=== PATIENT | female | born 1950 | race Caucasian/White ===

== ENCOUNTER 2016-10-15 20:40 | Inpatient (IN) | payer OTHER ==
[2016-10-15] MEDS ORDERED: DUONEB 0.5 MG/3 MG NEB ONE (21:28)
--- NOTE | 2016-10-15 21:29 | DR.GENAD ---
HPI - PCP Primary Care Physician: josselyn, - Complaint/Symptoms Chief Complaint Doctors Comments: Patient was undergoing dialysis today and the machine stopped working one hour short of the dialysis time. She experience dyspnes and came to the ED for evaluation. She has been on dialysis for one month. Chief Complaint:: PT C/O TIGHTNESS IN CHEST AND WEAK PT HAD DIAYLSIS YESTERDAY - Source History Provided: Patient - Mode of Arrival Mode of Arrival: Ambulatory - Timing Onset of Chief Complaint: 10/15/16 PMH - PMH Past Medical History: Yes Past Medical History: Diabetes, Dialysis, Hypertension, Hypothyroidism, Renal Disease Past Surgical History: Yes Surgical History: Appendectomy, Hysterectomy, Thyroidectomy, Tonsillectomy - Family History History of Family Medical Conditions: Yes Family Medical History Comment: RENAL DX - Social History Does any household member use tobacco: No Alcohol Use: None Do you use any recreational Drugs:: No Lives With: Family Lives Where: Home - infectious screening In the last 2 months have you had wt loss of >10#?: NO Have you had fever, night sweats or hemotysis?: No Have you traveled outside the country in the last 6 months?: No Isolation: Standard ROS - Review of Systems Constitutional: No Symptoms Reported Eyes: No Symptoms Reported ENTM: No Symptoms Reported Respiratoy: Short of Breath Cardiovascular: No Symptoms Reported Gastrointestinal/Abdominal: No Symptoms Reported Genitourinary: No Symptoms Reported Neurological: No Symptoms Reported Musculoskeletal: No Symptoms Reported Integumentary: No Symptoms Reported Hematologic/Lymphatic: Other (r/o PE) Endocrine: No Symptoms Reported PE - Vital Signs Vitals: Temperature 100.4 F Pulse Rate [Apical] 87 Pulse Rate 99 Respiratory Rate 20 Blood Pressure [Left Arm] 179/77 Blood Pressure 158/70 O2 Sat by Pulse Oximetry 94 - General Limitations: No Limitations General Appearance: Alert, In No Apparent Distress - Head Head Exam: Normal Inspection, Atraumatic - Eyes Eye exam: Normal Appearance, PERRL, EOMI - ENT ENT Exam: Normal Exam External Ear Exam: Normal External Inspection TM/Canal Exam: Bilateral Normal Nose Exam: Normal Nose Exam Mouth Exam: Normal Inspection Throat Exam: Normal Inspection - Neck Neck Exam: Normal Inspection - Chest Chest Inspection: Normal Inspection - Respiratory Respiratory Exam: Normal Lung Sounds Bilat Respiratory Exam: Bilateral Clear to Auscultation - Cardiovascular Cardiovascular Exam: Regular Rate, Normal Rhythm - Abdominal Exam Abdominal Exam: Normal Inspection Abdominal Tenderness: negative: RUQ, RLQ, LUQ, LLQ, Epigastrium, Suprapubic, Diffuse, Mild, Moderate, Severe, Other - Extremities Extremities Exam: Normal Inspection, Full ROM - Back Back Exam: Normal Inspection - Neurologic Neurological Exam: Alert, Oriented X3, CN II-XII Intact - Psychiatric Psychiatric Exam: Normal Affect, Normal Mood - Skin Skin Exam: Warm, Dry, Intact Course - Reevaluation 1st: Improved - Consultation Called: 23:20 (Patient discussed recommended admit for further evaluation) ROR - Labs Reviewed Laboratory Results Reviewed?: Yes (D Dimer 1350) Result Diagrams: 10/15/16 21:15 10/15/16 21:15 Laboratory: WBC 8.0 X10^3/uL (3.6-10.0) 10/15/16 21:15 RBC 2.86 X10^6/uL (3.5-5.4) L 10/15/16 21:15 Hgb 8.4 g/dL (12.0-16.0) L 10/15/16 21:15 Hct 25.0 % (36.0-47.0) L 10/15/16 21:15 MCV 87.6 fL (80.0-100.0) 10/15/16 21:15 MCH 29.3 pg (27.0-34.0) 10/15/16 21:15 MCHC 33.5 g/dL (33.0-35.0) 10/15/16 21:15 RDW 14.1 % (11.6-16.5) 10/15/16 21:15 Plt Count 190 X10^3/uL (150.0-450.0) 10/15/16 21:15 MPV 8.1 fL (7.4-11.0) 10/15/16 21:15 Neut % 79.4 % (42.0-75.0) H 10/15/16 21:15 Lymph % 9.5 % (21.0-51.0) L 10/15/16 21:15 Wilson % 8.2 % (0.0-13.0) 10/15/16 21:15 Eos % 1.8 % (0.9-2.9) 10/15/16 21:15 Baso % 1.1 % (0.2-1.0) H 10/15/16 21:15 Neut # 6.3 x10^3/uL (2.2-4.8) H 10/15/16 21:15 Lymph # 0.8 X10^3/uL (1.3-2.9) L 10/15/16 21:15 Wilson # 0.7 x10^3/uL (0.3-0.8) 10/15/16 21:15 Eos # 0.1 x10^3/uL (0.0-0.2) 10/15/16 21:15 Baso # 0.1 X10^3/uL (0.0-0.1) 10/15/16 21:15 Absolute Nucleated RBC 0.2 /100WBC 10/15/16 21:15 INR Target Range - 10/15/16 21:15 INR 1.05 (0.8-1.3) 10/15/16 21:15 PTT 26.5 SECONDS (22.9-36.5) 10/15/16 21:15 PTT Comment - 10/15/16 21:15 D-Dimer 1350 ng/mL (0-400) H* 10/15/16 21:15 Sodium 142 mmol/L (136-145) 10/15/16 21:15 Corrected Sodium 143 mmol/L (136-145) 10/15/16 21:15 Potassium 3.8 mmol/L (3.5-5.1) 10/15/16 21:15 Chloride 106 mmol/L (98-107) 10/15/16 21:15 Carbon Dioxide 25.8 mmol/L (21-32) 10/15/16 21:15 BUN 34 mg/dL (7-18) H 10/15/16 21:15 Creatinine 4.68 mg/dL (0.55-1.02) H 10/15/16 21:15 Est GFR (MDRD) Af Amer 12 (>60) L 10/15/16 21:15 Est GFR (MDRD) Non-Af 10 (>60) L 10/15/16 21:15 Glucose 133 mg/dL (65-99) H 10/15/16 21:15 Calcium 8.5 mg/dL (8.5-10.1) 10/15/16 21:15 Corrected Calcium 9.1 mg/dL (8.5-10.1) 10/15/16 21:15 Magnesium 1.7 mg/dL (1.7-2.9) 10/15/16 21:15 Total Bilirubin 0.40 mg/dL (0.2-1.0) 10/15/16 21:15 AST 25 Units/L (15-37) 10/15/16 21:15 ALT 24 Units/L (12-78) 10/15/16 21:15 Alkaline Phosphatase 95 Units/L (46-116) 10/15/16 21:15 Creatine Kinase 59 Units/L (26-192) 10/15/16 21:15 CK-MB (CK-2) < 1.0 ng/mL (0-4.0) 10/15/16 21:15 CK/CKMB % Calc 1.7 % (<4) 10/15/16 21:15 Troponin I 0.03 ng/mL (0-1.5) 10/15/16 21:15 Total Protein 7.1 g/dL (6.4-8.2) 10/15/16 21:15 Albumin 3.3 g/dL (3.4-5.0) L 10/15/16 21:15 Globulin 3.8 g/dL (2.5-4.5) 10/15/16 21:15 Albumin/Globulin Ratio 0.9 Ratio (1.1-2.1) L 10/15/16 21:15 - XRAY XRAY Interpreted by: Radiologist (Chest: cardiomegaly with pulmonary edema and trace bilateral pleural effusions. Right sided dialysis catheter in the place. No focal consolidations, pleural effusions or pneumothorax. Osseous structures demonstrate no acute abnormality. Impression: Cardiomegaly with edema and bilateral small pleural effusions.) - Diagnosis Discharge Problem: Cardiomegaly with PE, R/O Pulmonary emboli - Discharge Plan Condition: Stable - Follow ups/Referrals Follow ups/Referrals: Nicho Grewal [Primary Care Provider] - 3 days - Instructions
[2016-10-15] MEDS ORDERED: DUONEB 0.5 MG/3 MG ONE (21:31)
[2016-10-15 21:37] LABS: BASOPHILS # (AUTO) 0.1 X10^3/uL (0.0-0.1); BASOPHILS % (AUTO) 1.1 % (0.2-1.0); EOSINOPHILS # (AUTO) 0.1 x10^3/uL (0.0-0.2); EOSINOPHILS % (AUTO) 1.8 % (0.9-2.9); HEMOGLOBIN 8.4 g/dL (12.0-16.0); LYMPHOCYTES # (AUTO) 0.8 X10^3/uL (1.3-2.9); LYMPHOCYTES % (AUTO) 9.5 % (21.0-51.0); MEAN CORPUSCULAR HEMOGLOBIN 29.3 pg (27.0-34.0); MEAN CORPUSCULAR HGB CONC 33.5 g/dL (33.0-35.0); MEAN CORPUSCULAR VOLUME 87.6 fL (80.0-100.0); MEAN PLATELET VOLUME 8.1 fL (7.4-11.0); MONOCYTES # (AUTO) 0.7 x10^3/uL (0.3-0.8); MONOCYTES % (AUTO) 8.2 % (0.0-13.0); NEUTROPHILS # (AUTO) 6.3 x10^3/uL (2.2-4.8); NEUTROPHILS % (AUTO) 79.4 % (42.0-75.0); PLATELET COUNT 190 X10^3/uL (150.0-450.0); RED BLOOD COUNT 2.86 X10^6/uL (3.5-5.4); RED CELL DISTRIBUTION WIDTH 14.1 % (11.6-16.5)
[2016-10-15 21:52] LABS: BLOOD UREA NITROGEN 34 mg/dL (7-18); CALCIUM 8.5 mg/dL (8.5-10.1); CARBON DIOXIDE 25.8 mmol/L (21-32); CHLORIDE 106 mmol/L (98-107); COR NA(FOR HYPERGLY) 143 mmol/L (136-145); CREATININE 4.68 mg/dL (0.55-1.02); GLUCOSE 133 mg/dL (65-99); SODIUM 142 mmol/L (136-145); TROPONIN I 0.03 ng/mL (0-1.5); eGFR BLACK RACES 12 (>60); eGFR NON BLACK RACES 10 (>60)
[2016-10-15 21:56] LABS: ALANINE AMINOTRANSFERASE 24 Units/L (12-78); ALBUMIN 3.3 g/dL (3.4-5.0); ALKALINE PHOSPHATASE 95 Units/L (46-116); ASPARTATE AMINO TRANSFERASE 25 Units/L (15-37); CKMB % 1.7 % (<4); COR CA(FOR HYPOALB) 9.1 mg/dL (8.5-10.1); CREATINE KINASE 59 Units/L (26-192); CREATINE KINASE MB < 1.0 ng/mL (0-4.0); MAGNESIUM 1.7 mg/dL (1.7-2.9); TOTAL PROTEIN 7.1 g/dL (6.4-8.2)
--- NOTE | 2016-10-15 22:17 | RAD ---
HISTORY: Chest pain Study: Single view of the chest. Comparison: None. Findings: Cardiomegaly with pulmonary edema and trace bilateral pleural effusions. Right-sided dialysis cathet er in place. No focal consolidations, pleural effusions or pneumothorax. Osseous structures demonstr ate no acute abnormality. IMPRESSION: 1. Cardiomegaly with edema and bilateral small pleural effusions. Reported By:
[2016-10-15] MEDS ORDERED: LASIX IVP ONE ×2 (23:01→23:11)
[2016-10-15] MEDS ORDERED: MORPHINE SULFATE INJ 4 MG IVP ONE (23:12)
[2016-10-15] MEDS ORDERED: MORPHINE SULFATE INJ 4 MG ONE (23:16)
[2016-10-15] MEDS ORDERED: NS 1000 ML 1,000 ML IV SCH (23:45)
[2016-10-15] MEDS ORDERED: MORPHINE SULFATE INJ 4 MG IVP PRN (23:57)
[2016-10-15] MEDS ORDERED: ZOFRAN INJ 4 MG VIAL IVP PRN (23:58)
[2016-10-15] MEDS ORDERED: COLCRYS TAB 0.6 MG PO PRN (23:59)
[2016-10-16] MEDS ORDERED: HumuLIN R SC PRN (00:36)
[2016-10-16 00:59] VITALS: BMI 27.8
[2016-10-16 05:41] LABS: ALANINE AMINOTRANSFERASE 22 Units/L (12-78); ALKALINE PHOSPHATASE 81 Units/L (46-116); ASPARTATE AMINO TRANSFERASE 21 Units/L (15-37); BASOPHILS # (AUTO) 0.1 X10^3/uL (0.0-0.1); BLOOD UREA NITROGEN 36 mg/dL (7-18); CALCIUM 8.1 mg/dL (8.5-10.1); CARBON DIOXIDE 26.8 mmol/L (21-32); CHLORIDE 106 mmol/L (98-107); CHOL/HDL RATIO 3.6 (0.0-5.0); CHOLESTEROL 143 mg/dL (0-200); COR CA(FOR HYPOALB) 8.9 mg/dL (8.5-10.1); CREATININE 4.98 mg/dL (0.55-1.02); EOSINOPHILS # (AUTO) 0.1 x10^3/uL (0.0-0.2); EOSINOPHILS % (AUTO) 1.9 % (0.9-2.9); GLUCOSE 99 mg/dL (65-99); HDL CHOLESTEROL 40 mg/dL (40-60); HEMATOCRIT 22.4 % (36.0-47.0); HEMOGLOBIN 7.4 g/dL (12.0-16.0); LYMPHOCYTES # (AUTO) 1.1 X10^3/uL (1.3-2.9); LYMPHOCYTES % (AUTO) 14.3 % (21.0-51.0); MEAN CORPUSCULAR HEMOGLOBIN 29.6 pg (27.0-34.0); MEAN CORPUSCULAR HGB CONC 33.3 g/dL (33.0-35.0); MEAN CORPUSCULAR VOLUME 88.8 fL (80.0-100.0); MEAN PLATELET VOLUME 8.3 fL (7.4-11.0); MONOCYTES # (AUTO) 0.7 x10^3/uL (0.3-0.8); MONOCYTES % (AUTO) 9.6 % (0.0-13.0); NEUTROPHILS # (AUTO) 5.4 x10^3/uL (2.2-4.8); NEUTROPHILS % (AUTO) 73.2 % (42.0-75.0); PLATELET COUNT 182 X10^3/uL (150.0-450.0); RED BLOOD COUNT 2.52 X10^6/uL (3.5-5.4); RED CELL DISTRIBUTION WIDTH 14.2 % (11.6-16.5); SODIUM 143 mmol/L (136-145); TOTAL PROTEIN 6.5 g/dL (6.4-8.2); TRIGLYCERIDES 120 mg/dL (0-150); WHITE BLOOD COUNT 7.3 X10^3/uL (3.6-10.0); eGFR BLACK RACES 11 (>60); eGFR NON BLACK RACES 9 (>60)
[2016-10-16] MEDS: SYNTHROID 150 mcg TAB PO SCH (06:02)
[2016-10-16 06:48] LABS: PLATELET MORPHOLOGY COMMENT NORMAL (NORMAL)
[2016-10-16 06:49] LABS: MICROCYTOSIS SLIGHT
--- NOTE | 2016-10-16 06:53 | RAD ---
History: Weakness and shortness of breath Study: Portable chest Comparison: Yesterday Findings: There is little change showing a prominent heart size and asymmetric airspace disease prim arily in the right lung. There is vascular congestion. The costophrenic angles are indistinct. There is a dialysis catheter on the right unchanged. Impression: Unchanged small pleural effusions and vascular congestion and right lung pulmonary edema more than left versus pneumonia Reported By:
[2016-10-16] MEDS ORDERED: [UNRECOGNIZED DRUG - OTHER] PO SCH (09:00)
[2016-10-16] MEDS ORDERED: LASIX IVP SCH (09:00)
[2016-10-16] MEDS ORDERED: LASIX IVP ONE (09:00)
--- NOTE | 2016-10-16 09:11 | PCM.PROG ---
Progress Note - Progress Note for Day of Date: 10/16/16 - Subjective Subjective: PATIENT LYING IN BED AWAKE ON MORNING ROUNDS. VERBALIZES COMPLAINTS OF SHORTNESS OF BREATH. PATIENT IS NOTED WITH WHEEZING ON AUSCULTATION. WHILE IN ER, OXYGEN SATURATIONS DROPPED INTO THE 80S. SHE WAS PLACED ON SUPPLEMENTAL OXYGEN AND SATS INCREASED TO 94. PATIENT STATES THAT SHE HAS JUST RECENTLY BEGAN DIALYSIS TREATMENT A MONTH AGO AND THAT SHE IS AWAITING A KIDNEY TRANSPLANT. SHE WAS ALSO SCHEDULED FOR PLACEMENT OF A SHUNT FOR DIALYSIS, BUT CANCELLED PROCEDURE UNTIL SHE IS RELEASED FROM OUR CARE. LABS AND XRAYS WERE OBTAINED AND REPORT THE FOLLOWING: CBC WNL EXCEPT HBG/HCT 7.4/22.4. CMP WNL EXCEPT BUN/CREAT 36/4.98, GFR 9, ALBUMIN 3.0. D-DIMER 1350. CHEST XRAY REPORTS UNCHANGED SMALL PLEURAL EFFUSIONS AND VASCULAR CONGESTION AND RIGHT AKASH PULMONARY EDEMA MORE THAN LEFT VERSUS PNEUMONIA. A VQ SCAN IS SCHEDULED TODAY. WE WILL GIVE LASIX X 1 DOSE AND DISCONTINUE FLUIDS. WE WILL MONITOR LABS AND CHEST XRAY IN AM. - Past Medical Family Social History Past Med/Fam/Surg Hx: No changes since H&P Allergies: Allergies Codeine Allergy (Verified 10/15/16 20:42) - Review of Systems ROS: No change since H&P - Vital Signs and I&O's Vital Signs: Temperature 98.7 F Pulse Rate [Apical] 84 Respiratory Rate 20 Blood Pressure [Left Arm] 166/74 O2 Sat by Pulse Oximetry 89 Intake and Output: Intake & Output 10/13/16 10/14/16 10/15/16 10/16/16 11:59 11:59 11:59 11:59 Intake Total 240 Output Total 400 Balance -160 - Physical Exam Oriented: Normal Eyes: Normal. negative: Blurred Vision Ear: Normal. negative: Swelling, Ecchymosis, Hemotypanum, Abrasion Nose: Normal Throat: Normal. negative: Tonsillar Hypertrophy, Red, Exudate Respiratory: Normal, Diminished, Wheezes Cardiovascular: Normal : Normal. negative: Dysuria, Hematuria, Discharge, Bleeding Auscultation: Bowel Sounds: Normal Palpation: Normal Tenderness: Normal. negative: Rebound, Guarding, Rigidity Skin: Normal. negative: Wound, Bruising, Ecchymosis Musculoskeletal: Normal Psychiatric: Normal Mood Description: Calm Affect: Normal Speech Pattern: Clear, Appropriate - Laboratory and Diagnostics Result Diagrams: 10/16/16 03:20 10/16/16 03:20 Labs: Laboratory WBC 7.3 X10^3/uL (3.6-10.0) 10/16/16 03:20 RBC 2.52 X10^6/uL (3.5-5.4) L 10/16/16 03:20 Hgb 7.4 g/dL (12.0-16.0) L 10/16/16 03:20 Hct 22.4 % (36.0-47.0) L 10/16/16 03:20 MCV 88.8 fL (80.0-100.0) 10/16/16 03:20 MCH 29.6 pg (27.0-34.0) 10/16/16 03:20 MCHC 33.3 g/dL (33.0-35.0) 10/16/16 03:20 RDW 14.2 % (11.6-16.5) 10/16/16 03:20 Plt Count 182 X10^3/uL (150.0-450.0) 10/16/16 03:20 Plt Count Comment Adequate (ADEQUATE) 10/16/16 03:20 MPV 8.3 fL (7.4-11.0) 10/16/16 03:20 Neut % 73.2 % (42.0-75.0) 10/16/16 03:20 Lymph % 14.3 % (21.0-51.0) L 10/16/16 03:20 Door % 9.6 % (0.0-13.0) 10/16/16 03:20 Eos % 1.9 % (0.9-2.9) 10/16/16 03:20 Baso % 1.0 % (0.2-1.0) 10/16/16 03:20 Neut # 5.4 x10^3/uL (2.2-4.8) H 10/16/16 03:20 Lymph # 1.1 X10^3/uL (1.3-2.9) L 10/16/16 03:20 Door # 0.7 x10^3/uL (0.3-0.8) 10/16/16 03:20 Eos # 0.1 x10^3/uL (0.0-0.2) 10/16/16 03:20 Baso # 0.1 X10^3/uL (0.0-0.1) 10/16/16 03:20 Absolute Nucleated RBC 0.3 /100WBC 10/16/16 03:20 Plt Morphology Comment Normal (NORMAL) 10/16/16 03:20 RBC Morphology Abnormal (NORMAL) A 10/16/16 03:20 Microcytosis Slight A 10/16/16 03:20 INR Target Range - 10/15/16 21:15 INR 1.05 (0.8-1.3) 10/15/16 21:15 PTT 26.5 SECONDS (22.9-36.5) 10/15/16 21:15 PTT Comment - 10/15/16 21:15 D-Dimer 1350 ng/mL (0-400) H* 10/15/16 21:15 Sodium 143 mmol/L (136-145) 10/16/16 03:20 Corrected Sodium TNP 10/16/16 03:20 Potassium 3.7 mmol/L (3.5-5.1) 10/16/16 03:20 Chloride 106 mmol/L (98-107) 10/16/16 03:20 Carbon Dioxide 26.8 mmol/L (21-32) 10/16/16 03:20 BUN 36 mg/dL (7-18) H 10/16/16 03:20 Creatinine 4.98 mg/dL (0.55-1.02) H 10/16/16 03:20 Est GFR (MDRD) Af Amer 11 (>60) L 10/16/16 03:20 Est GFR (MDRD) Non-Af 9 (>60) L 10/16/16 03:20 Glucose 99 mg/dL (65-99) 10/16/16 03:20 Calcium 8.1 mg/dL (8.5-10.1) L 10/16/16 03:20 Corrected Calcium 8.9 mg/dL (8.5-10.1) 10/16/16 03:20 Magnesium 1.7 mg/dL (1.7-2.9) 10/15/16 21:15 Total Bilirubin 0.40 mg/dL (0.2-1.0) 10/16/16 03:20 AST 21 Units/L (15-37) 10/16/16 03:20 ALT 22 Units/L (12-78) 10/16/16 03:20 Alkaline Phosphatase 81 Units/L (46-116) 10/16/16 03:20 Creatine Kinase 59 Units/L (26-192) 10/15/16 21:15 CK-MB (CK-2) < 1.0 ng/mL (0-4.0) 10/15/16 21:15 CK/CKMB % Calc 1.7 % (<4) 10/15/16 21:15 Troponin I 0.03 ng/mL (0-1.5) 10/15/16 21:15 Total Protein 6.5 g/dL (6.4-8.2) 10/16/16 03:20 Albumin 3.0 g/dL (3.4-5.0) L 10/16/16 03:20 Globulin 3.5 g/dL (2.5-4.5) 10/16/16 03:20 Albumin/Globulin Ratio 0.9 Ratio (1.1-2.1) L 10/16/16 03:20 Triglycerides 120 mg/dL (0-150) 10/16/16 03:20 Cholesterol 143 mg/dL (0-200) 10/16/16 03:20 LDL Cholesterol, Calc 79 mg/dL (0-100) 10/16/16 03:20 HDL Cholesterol 40 mg/dL (40-60) 10/16/16 03:20 Cholesterol/HDL Ratio 3.6 (0.0-5.0) 10/16/16 03:20 - Plan (1) Pulmonary embolism Status: Suspected Qualifiers: Pulmonary embolism type: P Chronicity: C Acute cor pulmonale presence: A Plan: CHECK VQ SCAN, GIVE LASIX X 1 DOSE, SUPPLEMENTAL OXYGEN, MONITOR LABS AND CHEST XRAY IN AM. (2) Shortness of breath Status: Acute (3) Acute on chronic respiratory failure Status: Acute Qualifiers: Respiratory failure complication: hypoxia Qualified Code(s): J96.21 - Acute and chronic respiratory failure with hypoxia Plan: SAME ABOVE (4) Renal failure Status: Chronic Qualifiers: Renal failure chronicity: chronic Acute renal failure type: A Chronic kidney disease stage: on chronic dialysis Qualified Code(s): N18.6 - End stage renal disease; Z99.2 - Dependence on renal dialysis Plan: CONTINUE TO MONITOR (5) Sarcoidosis of lung Status: Chronic (6) Hyperlipidemia Status: Acute Qualifiers: Hyperlipidemia type: H Plan: CONTINUE TO MONITOR (7) Depression Status: Chronic Qualifiers: Depression Type: major depressive disorder Major depression recurrence: M Active/Remission status: currently active Major depression episode severity : moderate Psychotic features: P Trimester: T Plan: CONTINUE TO MONITOR (8) Hypertension Status: Chronic Qualifiers: Hypertension type: essential hypertension Qualified Code(s): I10 - Essential (primary) hypertension Plan: CONTINUE TO MONITOR (9) Hypothyroidism Status: Chronic Qualifiers: Hypothyroidism type: acquired Qualified Code(s): E03.9 - Hypothyroidism, unspecified Plan: CONTINUE TO MONITOR (10) Gout Status: Chronic Qualifiers: Gout site: multiple sites Gout etiology: due to renal impairment Encounter type: E Laterality: L Chronicity: chronic Presence of tophus: without tophus Qualified Code(s): M1A.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
[2016-10-16] MEDS: ZOLOFT PO SCH (09:48)
[2016-10-16] MEDS: COREG TAB 25 MG PO SCH (09:48)
[2016-10-16] MEDS: ZESTRIL TAB 5 MG PO SCH (09:48)
[2016-10-16] MEDS: NORVASC TAB 10 MG PO SCH (09:48)
[2016-10-16] MEDS: CRESTOR TAB 10 MG PO SCH (09:48)
[2016-10-16] MEDS: ZYLOPRIM PO SCH (09:48)
[2016-10-16] MEDS: DUONEB 0.5 MG/3 MG NEB SCH ×4 (09:54→21:45)
[2016-10-16] MEDS ORDERED: DUONEB 0.5 MG/3 MG NEB SCH (13:00)
--- NOTE | 2016-10-16 14:06 | NM ---
HISTORY: Elevated D-dimer, chest pain Study: Ventilation-perfusion lung scan Comparison: None Technique: Ventilation scan was carried out using inhalation of 30.15 millicuries technetium 99 per technetate aerosol. The perfusion scan was carried out using intravenous injection of 6.46 millicuri es technetium 99 MAA. Findings: Ventilation scan demonstrated symmetric ventilation without significant ventilation defects. Perfusi on scan demonstrated symmetric profusion without significant perfusion defects. The probability of a cute pulmonary thromboembolic disease is low. IMPRESSION: Low probability acute pulmonary thromboembolic disease Reported By:
[2016-10-16] MEDS ORDERED: SNACK - Diabetic Appropriate PO SCH (20:00)
[2016-10-17] MEDS: SYNTHROID 150 mcg TAB PO SCH (06:01)
--- NOTE | 2016-10-17 06:17 | RAD ---
HISTORY: Shortness of breath Study: Chest one view Comparison: October 16, 2016 Findings: There is a dialysis catheter present with its tip in the superior vena cava. The heart is enlarged. Mild pulmonary venous congestion is present. Increasing right-sided perihilar alveolar infiltrates a re present most consistent with diffuse right lung pneumonia although asymmetric edema could have th is appearance. The left lung is clear. No pleural effusions are identified. IMPRESSION: Worsening right perihilar airspace disease most likely pneumonia although asymmetric edema could spi rits Moderate cardiomegaly Reported By:
[2016-10-17 06:22] LABS: BASOPHILS # (AUTO) 0.1 X10^3/uL (0.0-0.1); BASOPHILS % (AUTO) 0.9 % (0.2-1.0); EOSINOPHILS # (AUTO) 0.1 x10^3/uL (0.0-0.2); EOSINOPHILS % (AUTO) 1.5 % (0.9-2.9); HEMATOCRIT 22.5 % (36.0-47.0); HEMOGLOBIN 7.5 g/dL (12.0-16.0); LYMPHOCYTES # (AUTO) 1.1 X10^3/uL (1.3-2.9); LYMPHOCYTES % (AUTO) 14.3 % (21.0-51.0); MEAN CORPUSCULAR HEMOGLOBIN 29.7 pg (27.0-34.0); MEAN CORPUSCULAR HGB CONC 33.5 g/dL (33.0-35.0); MEAN CORPUSCULAR VOLUME 88.8 fL (80.0-100.0); MEAN PLATELET VOLUME 8.5 fL (7.4-11.0); MONOCYTES % (AUTO) 12.8 % (0.0-13.0); NEUTROPHILS # (AUTO) 5.3 x10^3/uL (2.2-4.8); NEUTROPHILS % (AUTO) 70.5 % (42.0-75.0); PLATELET COUNT 195 X10^3/uL (150.0-450.0); RED BLOOD COUNT 2.53 X10^6/uL (3.5-5.4); RED CELL DISTRIBUTION WIDTH 14.3 % (11.6-16.5); WHITE BLOOD COUNT 7.5 X10^3/uL (3.6-10.0)
[2016-10-17 06:36] LABS: ALANINE AMINOTRANSFERASE 16 Units/L (12-78); ALBUMIN 2.9 g/dL (3.4-5.0); ALKALINE PHOSPHATASE 83 Units/L (46-116); ASPARTATE AMINO TRANSFERASE 19 Units/L (15-37); BLOOD UREA NITROGEN 47 mg/dL (7-18); CALCIUM 8.6 mg/dL (8.5-10.1); CARBON DIOXIDE 24.2 mmol/L (21-32); CHLORIDE 105 mmol/L (98-107); COR CA(FOR HYPOALB) 9.5 mg/dL (8.5-10.1); CREATININE 5.31 mg/dL (0.55-1.02); GLUCOSE 105 mg/dL (65-99); SODIUM 142 mmol/L (136-145); TOTAL PROTEIN 6.6 g/dL (6.4-8.2); eGFR BLACK RACES 10 (>60); eGFR NON BLACK RACES 9 (>60)
[2016-10-17 07:21] LABS: HYPOCHROMASIA SLIGHT; PLATELET MORPHOLOGY COMMENT NORMAL (NORMAL)
[2016-10-17 07:22] LABS: ANISOCYTOSIS SLIGHT
[2016-10-17] MEDS: ZOLOFT PO SCH ×2 (07:42→10:35)
[2016-10-17] MEDS: ZYLOPRIM PO SCH ×2 (07:42→10:35)
[2016-10-17] MEDS: CRESTOR TAB 10 MG PO SCH ×2 (07:42→10:35)
[2016-10-17] MEDS: COREG TAB 25 MG PO SCH ×2 (07:42→10:34)
[2016-10-17] MEDS: ZESTRIL TAB 5 MG PO SCH ×2 (07:42→10:35)
[2016-10-17] MEDS: NORVASC TAB 10 MG PO SCH ×2 (07:43→10:35)
[2016-10-17] MEDS: DUONEB 0.5 MG/3 MG NEB SCH (09:15)
[2016-10-17 10:33] VITALS: BP 148/64
== END 2016-10-17 09:20 | disposition home or self-care (01) | DRG 204 ==
LOC: ER 20:40 → MED/SURG 23:48
PROVIDERS: ADMIT Internal Medicine; ATTEND Internal Medicine
DX: R06.02 Shortness of breath (principal); I26.99 Other pulmonary embolism without acute cor pulmonale; D86.0 Sarcoidosis of lung; E11.40 Type 2 diabetes mellitus with diabetic neuropathy, unspecified; R07.89 Other chest pain; E11.65 Type 2 diabetes mellitus with hyperglycemia; I10 Essential (primary) hypertension; E03.8 Other specified hypothyroidism; I51.7 Cardiomegaly; J90 Pleural effusion, not elsewhere classified; J96.21 Acute and chronic respiratory failure with hypoxia; N18.6 End stage renal disease; Z99.2 Dependence on renal dialysis; E78.2 Mixed hyperlipidemia; F32.89 Other specified depressive episodes; M1A.39X0 Chronic gout due to renal impairment, multiple sites, without tophus (tophi); Z79.01 Long term (current) use of anticoagulants
CPT/HCPCS: 36415; 71010; 78582; 80053; 80061; 82550; 82553; 83735; 84484; 85025; 85378; 85610; 85730; 93005; 94640; 94760; 96374; 96375; 99284; A4216; A4222; J1940; J2270; J7620

== ENCOUNTER 2017-05-08 09:51 | Observation (INO) | payer OTHER ==
[2017-05-08 12:27] VITALS: BMI 28.4
[2017-05-08 12:35] LABS: ALANINE AMINOTRANSFERASE 71 Units/L (12-78); ALBUMIN 3.5 g/dL (3.4-5.0); ALKALINE PHOSPHATASE 107 Units/L (46-116); ASPARTATE AMINO TRANSFERASE 26 Units/L (15-37); BASOPHILS # (AUTO) 0.1 X10^3/uL (0.0-0.1); BASOPHILS % (AUTO) 0.5 % (0.2-1.0); BLOOD UREA NITROGEN 25 mg/dL (7-18); CALCIUM 7.4 mg/dL (8.5-10.1); CARBON DIOXIDE 28.1 mmol/L (21-32); CHLORIDE 100 mmol/L (98-107); COR NA(FOR HYPERGLY) 140 mmol/L (136-145); CREATININE 3.41 mg/dL (0.55-1.02); EOSINOPHILS # (AUTO) 0.1 x10^3/uL (0.0-0.2); EOSINOPHILS % (AUTO) 1.1 % (0.9-2.9); HEMATOCRIT 33.5 % (36.0-47.0); HEMOGLOBIN 10.9 g/dL (12.0-16.0); LYMPHOCYTES # (AUTO) 1.1 X10^3/uL (1.3-2.9); LYMPHOCYTES % (AUTO) 8.7 % (21.0-51.0); MEAN CORPUSCULAR HGB CONC 32.4 g/dL (33.0-35.0); MEAN CORPUSCULAR VOLUME 98.8 fL (80.0-100.0); MEAN PLATELET VOLUME 9.9 fL (7.4-11.0); MONOCYTES # (AUTO) 0.7 x10^3/uL (0.3-0.8); MONOCYTES % (AUTO) 5.4 % (0.0-13.0); NEUTROPHILS # (AUTO) 11.1 x10^3/uL (2.2-4.8); NEUTROPHILS % (AUTO) 84.3 % (42.0-75.0); PLATELET COUNT 175 X10^3/uL (150.0-450.0); RED BLOOD COUNT 3.39 X10^6/uL (3.5-5.4); RED CELL DISTRIBUTION WIDTH 16.5 % (11.6-16.5); SODIUM 139 mmol/L (136-145); TOTAL PROTEIN 7.4 g/dL (6.4-8.2); WHITE BLOOD COUNT 13.1 X10^3/uL (3.6-10.0); eGFR BLACK RACES 17 (>60); eGFR NON BLACK RACES 14 (>60)
[2017-05-08 12:49] LABS: PLATELET MORPHOLOGY COMMENT NORMAL (NORMAL)
[2017-05-08] MEDS: LASIX IVP SCH ×2 (14:13→20:35)
[2017-05-08] MEDS: ECOTRIN TAB 325 MG PO SCH (14:13)
--- NOTE | 2017-05-08 15:14 | RAD ---
Examination: Chest, portable AP History: CHF, SOB, hypertension and sarcoid Comparison reference 10/17/2016 Findings: The heart is enlarged. The central pulmonary vessels are mildly distended. There is no evid ence for consolidation, adenopathy or pleural fluid. Impression: Cardiac enlargement with mild vascular congestion. Mention is made of a surgical vascular stent in the soft tissues of the left upper arm. Reported By:
[2017-05-08] MEDS ORDERED: COLCRYS TAB 0.6 MG PO PRN (17:05)
--- NOTE | 2017-05-09 06:17 | RAD ---
examination: Portable AP chest History: SOB Comparison reference 05/08/2017 Findings: Continued cardiomegaly and mild central vascular congestion. No evidence for developing pne umonia, pleural fluid or pulmonary edema. Impression: No change. Reported By:
[2017-05-09 06:23] LABS: BASOPHILS # (AUTO) 0.1 X10^3/uL (0.0-0.1); BASOPHILS % (AUTO) 0.7 % (0.2-1.0); EOSINOPHILS # (AUTO) 0.4 x10^3/uL (0.0-0.2); EOSINOPHILS % (AUTO) 2.9 % (0.9-2.9); HEMATOCRIT 33.1 % (36.0-47.0); HEMOGLOBIN 10.6 g/dL (12.0-16.0); LYMPHOCYTES # (AUTO) 1.9 X10^3/uL (1.3-2.9); LYMPHOCYTES % (AUTO) 13.9 % (21.0-51.0); MEAN CORPUSCULAR HEMOGLOBIN 32.1 pg (27.0-34.0); MEAN CORPUSCULAR HGB CONC 32.1 g/dL (33.0-35.0); MEAN CORPUSCULAR VOLUME 99.9 fL (80.0-100.0); MONOCYTES % (AUTO) 7.1 % (0.0-13.0); NEUTROPHILS # (AUTO) 10.3 x10^3/uL (2.2-4.8); NEUTROPHILS % (AUTO) 75.4 % (42.0-75.0); PLATELET COUNT 213 X10^3/uL (150.0-450.0); RED BLOOD COUNT 3.32 X10^6/uL (3.5-5.4); RED CELL DISTRIBUTION WIDTH 17.1 % (11.6-16.5); WHITE BLOOD COUNT 13.7 X10^3/uL (3.6-10.0)
[2017-05-09 06:41] LABS: ALANINE AMINOTRANSFERASE 59 Units/L (12-78); ALBUMIN 3.4 g/dL (3.4-5.0); ALKALINE PHOSPHATASE 98 Units/L (46-116); ASPARTATE AMINO TRANSFERASE 18 Units/L (15-37); BLOOD UREA NITROGEN 39 mg/dL (7-18); CALCIUM 6.7 mg/dL (8.5-10.1); CARBON DIOXIDE 25.7 mmol/L (21-32); CHLORIDE 101 mmol/L (98-107); COR NA(FOR HYPERGLY) 143 mmol/L (136-145); CREATININE 5.21 mg/dL (0.55-1.02); SODIUM 142 mmol/L (136-145); TOTAL PROTEIN 7.2 g/dL (6.4-8.2); eGFR BLACK RACES 11 (>60); eGFR NON BLACK RACES 9 (>60)
[2017-05-09 06:57] LABS: BAND NEUTROPHILS % 5 % (0-10)
[2017-05-09 06:58] LABS: PLATELET MORPHOLOGY COMMENT NORMAL (NORMAL)
[2017-05-09] MEDS: ECOTRIN TAB 325 MG PO SCH (08:34)
[2017-05-09] MEDS ORDERED: ZOLOFT PO SCH (09:00)
[2017-05-09] MEDS ORDERED: ZYLOPRIM PO SCH (09:00)
[2017-05-09] MEDS ORDERED: ZESTRIL TAB 5 MG PO SCH (09:00)
[2017-05-09] MEDS ORDERED: COREG TAB 25 MG PO SCH (09:00)
[2017-05-09] MEDS ORDERED: NORVASC TAB 10 MG PO SCH (09:00)
[2017-05-09] MEDS ORDERED: CRESTOR TAB 10 MG PO SCH (09:00)
[2017-05-09] MEDS ORDERED: SYNTHROID 125 mcg TAB PO SCH (09:00)
[2017-05-09] MEDS: LASIX IVP SCH ×2 (10:03→17:16)
[2017-05-09] MEDS ORDERED: ELIQUIS PO SCH (10:30)
--- NOTE | 2017-05-09 12:09 | DR.UPDATE ---
H&P Update History and Physical Update: WAS SEEN IN THE OFFICE ON 05/07/17. A H&P WAS COMPLETED PRIOR TO ADMISSION. PATIENT HAS BEEN SEEN AND EXAMINED WITH NO CHANGES NOTED TO H&P. Changes noted: NO Yes with the following:
[2017-05-09 16:15] VITALS: BP 138/91
[2017-05-09] MEDS ORDERED: LASIX IVP ONE (16:50)
== END 2017-05-09 18:05 | disposition home or self-care (01) ==
LOC: OBS 09:51 → UNDOADMOB 09:51 → OBS 11:41
PROVIDERS: ADMIT Internal Medicine; ATTEND Internal Medicine
DX: I50.9 Heart failure, unspecified (principal); N18.6 End stage renal disease; E11.65 Type 2 diabetes mellitus with hyperglycemia; B96.5 Pseudomonas (aeruginosa) (mallei) (pseudomallei) as the cause of diseases classified elsewhere; D72.828 Other elevated white blood cell count; D64.89 Other specified anemias; R94.4 Abnormal results of kidney function studies
CPT/HCPCS: 36415; 71010; 80053; 85025; 87070; 87075; 87077; 87186; 87205; 94760; A4222; G0378; J1940

== ENCOUNTER 2020-08-06 11:33 | Inpatient (IN) ==
[2020-08-06 11:36] VITALS: BMI 26.6
--- NOTE | 2020-08-06 12:19 | RAD ---
HISTORYSOBSTUDYCHEST, 1 VIEWCOMPARISONPortable chest May 06, 2019.FINDINGSThe trachea is midline. The cardiac silhouette is mildly enlarged but stable.. The lungs are clear without focal infiltrate or effusion. The bony thorax is unremarkable.IMPRESSIONNo acute cardiopulmonary disease and no significant change from prior chest film May 06, 2019..Electronically signed by: ARIS VASQUEZ (Aug 06, 2020 12:15:42)
[2020-08-06 12:53] LABS: BASOPHILS % (AUTO) 0 % (0.2-1.0); EOSINOPHILS % (AUTO) 0.5 % (0.9-2.9); HEMATOCRIT 24.9 % (36.0-47.0); HEMOGLOBIN 8.2 g/dL (12.0-16.0); LYMPHOCYTES # (AUTO) 0.1 X10^3/uL (1.3-2.9); LYMPHOCYTES % (AUTO) 2.1 % (21.0-51.0); MEAN CORPUSCULAR HEMOGLOBIN 33.9 pg (27.0-34.0); MEAN CORPUSCULAR HGB CONC 32.9 g/dL (33.0-35.0); MEAN CORPUSCULAR VOLUME 103.1 fL (80.0-100.0); MEAN PLATELET VOLUME 7.9 fL (7.4-11.0); MONOCYTES # (AUTO) 4.5 x10^3/uL (0.3-0.8); MONOCYTES % (AUTO) 87.9 % (0.0-13.0); NEUTROPHILS # (AUTO) 0.5 x10^3/uL (2.2-4.8); NEUTROPHILS % (AUTO) 9.5 % (42.0-75.0); PLATELET COUNT 276 X10^3/uL (150.0-450.0); RED BLOOD COUNT 2.42 X10^6/uL (3.5-5.4); WHITE BLOOD COUNT 5.1 X10^3/uL (3.6-10.0)
[2020-08-06] MEDS ORDERED: DILAUDID INJ IVP STA (12:59)
[2020-08-06 13:09] LABS: BLOOD UREA NITROGEN 28 mg/dL (7-18); CALCIUM 8.6 mg/dL (8.5-10.1); CHLORIDE 100 mmol/L (98-107); COR NA(FOR HYPERGLY) 136 mmol/L (136-145); CREATININE 1.35 mg/dL (0.55-1.02); SODIUM 133 mmol/L (136-145); TROPONIN I < 0.02 ng/mL (0-1.5); eGFR NON BLACK RACES 41 (>60)
[2020-08-06 13:14] LABS: ALANINE AMINOTRANSFERASE 25 Units/L (12-78); ALBUMIN 3.1 g/dL (3.4-5.0); ALKALINE PHOSPHATASE 95 Units/L (46-116); ASPARTATE AMINO TRANSFERASE 27 Units/L (15-37); CKMB % 3.6 % (<4); COR CA(FOR HYPOALB) 9.3 mg/dL (8.5-10.1); CREATINE KINASE 28 Units/L (26-192); CREATINE KINASE MB < 1.0 ng/mL (0-4.0); MAGNESIUM 1.3 mg/dL (1.7-2.9); TOTAL PROTEIN 5.9 g/dL (6.4-8.2)
[2020-08-06] MEDS ORDERED: DILAUDID INJ ONE (13:45)
[2020-08-06] MEDS ORDERED: TYLENOL 500 MG TAB EXTRA STRENGTH PO ONE (13:47)
[2020-08-06] MEDS: TYLENOL 500 MG TAB EXTRA STRENGTH PO PRN ×2 (13:51→20:37)
--- NOTE | 2020-08-06 14:47 | DR.SOBA ---
HPI Time Seen Time Seen by Provider: 08/06/20 11:59 Primary Care Physician Primary Care Physician: CRYSTAL HPI Comment HPI Comment: Patient presents with the complaint of shortness of breath x 2 weeks. Sent to ED by PCP. Notes that she has recently had kidney transplant. Feels pain in the center of her chest. Complaints Chief Complaint:: PT. C/O SHORTNESS OF BREATH X 2 WEEKS. PT. C/O WEAKNESS. PT. HAD A KIDNEY TRANSPLANT IN Apr IN [place], [place]. COVID-19 Coronavirus risk:travel/contact w/high risk person: No Has patient experienced Coronavirus symptoms: Yes Coronavirus symptoms experienced: Shortness of Breath Source History Provided: Patient Mode of Arrival Mode of Arrival: Wheelchair Timing Onset of Chief Complaint: 07/23/20 PMH PMH Past Medical History: Yes Past Medical History: Diabetes, Dialysis, Hypertension, Hypothyroidism and Renal Disease Past Surgical History: Yes Surgical History: Appendectomy, Hysterectomy, Organ Transplant, Thyroidectomy and Tonsillectomy Past Surgical History Comment: KIDNEY TRANSPLANT Family History History of Family Medical Conditions: Yes Family Medical History: Diabetes Mellitus, Coronary Artery Disease and Hypertension Social History Does patient currently use any type of tobacco product: No Have you used tobacco products in the last 12 months: No Type of Tobacco Use: None Does any household member use tobacco: No Alcohol Use: None Do you use any recreational Drugs:: No Lives With: Spouse Lives Where: Home Travel Risk Coronavirus risk:travel/contact w/high risk person: No Has patient experienced Coronavirus symptoms: Yes Coronavirus symptoms experienced: Shortness of Breath Infectious screening In the last 2 months have you had wt loss of >10#?: NO Have you had fever, night sweats or hemotysis?: No Have you traveled outside the country in the last 6 months?: No Isolation: Droplet ROS Review of Systems Constitutional: See HPI Respiratoy: Short of Breath Cardiovascular: Chest Pain All Other Systems: Reviewed and Negative PE Vital Signs Vitals: Temperature 98.8 F Pulse Rate 78 Respiratory Rate 20 Blood Pressure [Right Arm] 138/91 Blood Pressure 127/59 O2 Sat by Pulse Oximetry 93 General Limitations: No Limitations General Appearance: Alert and In No Apparent Distress Head Head Exam: Normal Inspection, Atraumatic and Normocephalic Eyes Eye exam: Normal Appearance, PERRL and EOMI Neck Neck Exam: Normal Inspection and Trachea Midline Chest Chest Inspection: Normal Inspection, Symmetric Chest Wall Rise and Tenderness (midsternal) Respiratory Respiratory Exam: Normal Lung Sounds Bilat Respiratory Exam: Bilateral: Clear to Auscultation Cardiovascular Cardiovascular Exam: Regular Rate, Normal Rhythm and Normal Heart Sounds Abdominal Exam Abdominal Exam: Normal Inspection, Normal Bowel Sounds and Soft Extremities Extremities Exam: Normal Inspection Neurologic Neurological Exam: Alert and Oriented X3 Psychiatric Psychiatric Exam: Normal Affect and Normal Mood Skin Skin Exam: Warm, Dry and Intact COURSE Reevaluation 1st: Improved (states that she feels better with supplemental oxygen) Consultation Consultation Comments: Spoke with Dr. Grewal and with Dr. Lee. patient will be admitted to medical floor. ROR Labs Reviewed Laboratory Results Reviewed?: Yes Result Diagrams: 08/06/20 12:35 08/06/20 12:35 Laboratory: WBC 5.1 X10^3/uL (3.6-10.0) 08/06/20 12:35 RBC 2.42 X10^6/uL (3.5-5.4) L 08/06/20 12:35 Hgb 8.2 g/dL (12.0-16.0) L 08/06/20 12:35 Hct 24.9 % (36.0-47.0) L 08/06/20 12:35 MCV 103.1 fL (80.0-100.0) H 08/06/20 12:35 MCH 33.9 pg (27.0-34.0) 08/06/20 12:35 MCHC 32.9 g/dL (33.0-35.0) L 08/06/20 12:35 RDW 15.0 % (11.6-16.5) 08/06/20 12:35 Plt Count 276 X10^3/uL (150.0-450.0) 08/06/20 12:35 Plt Count Comment Cancelled 08/06/20 12:35 MPV 7.9 fL (7.4-11.0) 08/06/20 12:35 Neut % (Auto) 9.5 % (42.0-75.0) L 08/06/20 12:35 Lymph % (Auto) 2.1 % (21.0-51.0) L 08/06/20 12:35 [place] % (Auto) 87.9 % (0.0-13.0) H 08/06/20 12:35 Eos % (Auto) 0.5 % (0.9-2.9) L 08/06/20 12:35 Baso % (Auto) 0 % (0.2-1.0) L 08/06/20 12:35 Neut # (Auto) 0.5 x10^3/uL (2.2-4.8) L 08/06/20 12:35 Lymph # (Auto) 0.1 X10^3/uL (1.3-2.9) L 08/06/20 12:35 [place] # (Auto) 4.5 x10^3/uL (0.3-0.8) H 08/06/20 12:35 Eos # (Auto) 0.0 x10^3/uL (0.0-0.2) 08/06/20 12:35 Baso # (Auto) 0.0 X10^3/uL (0.0-0.1) 08/06/20 12:35 Absolute Nucleated RBC 0.1 /100WBC 08/06/20 12:35 Total Counted Cancelled 08/06/20 12:35 Neutrophils % (Manual) Cancelled 08/06/20 12:35 Band Neutrophils % Cancelled 08/06/20 12:35 Lymphocytes % (Manual) Cancelled 08/06/20 12:35 Monocytes % (Manual) Cancelled 08/06/20 12:35 Eosinophils % (Manual) Cancelled 08/06/20 12:35 Basophils % (Manual) Cancelled 08/06/20 12:35 Metamyelocytes % Cancelled 08/06/20 12:35 Myelocytes % Cancelled 08/06/20 12:35 Promyelocytes % Cancelled 08/06/20 12:35 Nucleated RBCs Cancelled 08/06/20 12:35 Atypical Lymphocytes Cancelled 08/06/20 12:35 Blast Cells Cancelled 08/06/20 12:35 Smudge Cells Cancelled 08/06/20 12:35 Toxic Granulation Cancelled 08/06/20 12:35 Dohle Bodies Cancelled 08/06/20 12:35 [place]asper Rods Cancelled 08/06/20 12:35 Plt Clumps, EDTA Cancelled 08/06/20 12:35 Giant Platelets Cancelled 08/06/20 12:35 Plt Morphology Comment Cancelled 08/06/20 12:35 RBC Morphology Cancelled 08/06/20 12:35 Dimorphic RBCs Cancelled 08/06/20 12:35 Polychromasia Cancelled 08/06/20 12:35 Hypochromasia Cancelled 08/06/20 12:35 Poikilocytosis Cancelled 08/06/20 12:35 Basophilic Stippling Cancelled 08/06/20 12:35 Anisocytosis Cancelled 08/06/20 12:35 Microcytosis Cancelled 08/06/20 12:35 Macrocytosis Cancelled 08/06/20 12:35 Spherocytes Cancelled 08/06/20 12:35 Pappenheimer Bodies Cancelled 08/06/20 12:35 Sickle Cells Cancelled 08/06/20 12:35 Target Cells Cancelled 08/06/20 12:35 Tear Drop Cells Cancelled 08/06/20 12:35 Ovalocytes Cancelled 08/06/20 12:35 Stomatocytes Cancelled 08/06/20 12:35 Helmet Cells Cancelled 08/06/20 12:35 [place] Bodies Cancelled 08/06/20 12:35 [place] Rings Cancelled 08/06/20 12:35 [place] Cells Cancelled 08/06/20 12:35 Crenated Cell Cancelled 08/06/20 12:35 Acanthocytes (Spur) Cancelled 08/06/20 12:35 Rouleaux Cancelled 08/06/20 12:35 Schistocytes Cancelled 08/06/20 12:35 Sodium 133 mmol/L (136-145) L 08/06/20 12:35 Corrected Sodium 136 mmol/L (136-145) 08/06/20 12:35 Potassium 3.8 mmol/L (3.5-5.1) 08/06/20 12:35 Chloride 100 mmol/L (98-107) 08/06/20 12:35 Carbon Dioxide 24.0 mmol/L (21-32) 08/06/20 12:35 BUN 28 mg/dL (7-18) H 08/06/20 12:35 Creatinine 1.35 mg/dL (0.55-1.02) H 08/06/20 12:35 Est GFR (MDRD) Af Amer 50 (>60) L 08/06/20 12:35 Est GFR (MDRD) Non-Af 41 (>60) L 08/06/20 12:35 Glucose 238 mg/dL (65-99) H 08/06/20 12:35 Calcium 8.6 mg/dL (8.5-10.1) 08/06/20 12:35 Corrected Calcium 9.3 mg/dL (8.5-10.1) 08/06/20 12:35 Magnesium 1.3 mg/dL (1.7-2.9) L 08/06/20 12:35 Total Bilirubin 2.10 mg/dL (0.2-1.0) H 08/06/20 12:35 AST 27 Units/L (15-37) 08/06/20 12:35 ALT 25 Units/L (12-78) 08/06/20 12:35 Alkaline Phosphatase 95 Units/L (46-116) 08/06/20 12:35 Creatine Kinase 28 Units/L (26-192) 08/06/20 12:35 CK-MB (CK-2) < 1.0 ng/mL (0-4.0) 08/06/20 12:35 CK/CKMB % Calc 3.6 % (<4) 08/06/20 12:35 Troponin I < 0.02 ng/mL (0-1.5) 08/06/20 12:35 B-Natriuretic Peptide 589 pg/mL (0-79) H* 08/06/20 12:35 Total Protein 5.9 g/dL (6.4-8.2) L 08/06/20 12:35 Albumin 3.1 g/dL (3.4-5.0) L 08/06/20 12:35 Globulin 2.8 g/dL (2.5-4.5) 08/06/20 12:35 Albumin/Globulin Ratio 1.1 Ratio (1.1-2.1) 08/06/20 12:35 SARS-CoV-2 (PCR) Negative (NEGATIVE) 08/06/20 12:20 Influenza Type A Ag Cancelled 08/06/20 12:20 Influenza Type A (PCR) Negative (NEGATIVE) 08/06/20 12:20 Influenza Type B Ag Cancelled 08/06/20 12:20 Influenza Type B (PCR) Negative (NEGATIVE) 08/06/20 12:20 RSV (PCR) Negative (NEGATIVE) 08/06/20 12:20 XRAY X-ray Results: HISTORY SOB STUDY CHEST, 1 VIEW COMPARISON Portable chest May 06, 2019. FINDINGS The trachea is midline. The cardiac silhouette is mildly enlarged but stable.. The lungs are clear without focal infiltrate or effusion. The bony thorax is unremarkable. IMPRESSION No acute cardiopulmonary disease and no significant change from prior chest film May 06, 2019.. Electronically signed by: ARIS VASQUEZ (Aug 06, 2020 12:15:42) Opioid Opioid Risk Tool Age (Jose box if 16-45): No History of Preadolescent Sexual Abuse: No Total: 0 Total Score Risk Category: Low Risk Copyright: Gold HUSSEIN predicting aberrant behaviors Diagnosis Discharge Problem: Shortness of breath
[2020-08-06] MEDS ORDERED: NS 1000 ML 1,000 ML IV SCH ×2 (16:00→20:25)
[2020-08-06] MEDS: MAGNESIUM SULFATE 1 GRAM/100 mL PREMIX 1 GM/100 ML BAG IV PRN ×2 (18:29→21:23)
[2020-08-06 19:09] LABS: BASOPHILS % (AUTO) 0 % (0.2-1.0); HEMATOCRIT 25.2 % (36.0-47.0); HEMOGLOBIN 8.3 g/dL (12.0-16.0); LYMPHOCYTES # (AUTO) 0.1 X10^3/uL (1.3-2.9); LYMPHOCYTES % (AUTO) 2.1 % (21.0-51.0); MEAN CORPUSCULAR HEMOGLOBIN 34.2 pg (27.0-34.0); MEAN CORPUSCULAR HGB CONC 32.8 g/dL (33.0-35.0); MEAN CORPUSCULAR VOLUME 104.4 fL (80.0-100.0); MEAN PLATELET VOLUME 8.2 fL (7.4-11.0); MONOCYTES # (AUTO) 5.7 x10^3/uL (0.3-0.8); MONOCYTES % (AUTO) 85.1 % (0.0-13.0); NEUTROPHILS # (AUTO) 0.9 x10^3/uL (2.2-4.8); NEUTROPHILS % (AUTO) 12.8 % (42.0-75.0); PLATELET COUNT 269 X10^3/uL (150.0-450.0); RED BLOOD COUNT 2.41 X10^6/uL (3.5-5.4); RED CELL DISTRIBUTION WIDTH 15.3 % (11.6-16.5); WHITE BLOOD COUNT 6.7 X10^3/uL (3.6-10.0)
[2020-08-06 19:28] LABS: BLOOD UREA NITROGEN 33 mg/dL (7-18); CALCIUM 8.6 mg/dL (8.5-10.1); CHLORIDE 98 mmol/L (98-107); COR NA(FOR HYPERGLY) 137 mmol/L (136-145); CREATININE 1.67 mg/dL (0.55-1.02); SODIUM 130 mmol/L (136-145); TROPONIN I < 0.02 ng/mL (0-1.5); eGFR NON BLACK RACES 32 (>60)
[2020-08-06 19:32] LABS: ALANINE AMINOTRANSFERASE 29 Units/L (12-78); ALKALINE PHOSPHATASE 98 Units/L (46-116); ASPARTATE AMINO TRANSFERASE 31 Units/L (15-37); CKMB % 2.5 % (<4); COR CA(FOR HYPOALB) 9.4 mg/dL (8.5-10.1); CREATINE KINASE 40 Units/L (26-192); TOTAL PROTEIN 6.1 g/dL (6.4-8.2)
[2020-08-07 01:35] LABS: CKMB % 2.4 % (<4); CREATINE KINASE 42 Units/L (26-192); CREATINE KINASE MB < 1.0 ng/mL (0-4.0)
[2020-08-07] MEDS: MAGNESIUM SULFATE 1 GRAM/100 mL PREMIX 1 GM/100 ML BAG IV PRN ×2 (01:50→05:40)
[2020-08-07 01:51] LABS: TROPONIN I < 0.02 ng/mL (0-1.5)
[2020-08-07 03:41] LABS: BASOPHILS % (AUTO) 0.4 % (0.2-1.0); EOSINOPHILS # (AUTO) 0.4 x10^3/uL (0.0-0.2); EOSINOPHILS % (AUTO) 6.1 % (0.9-2.9); HEMATOCRIT 23.3 % (36.0-47.0); HEMOGLOBIN 7.5 g/dL (12.0-16.0); LYMPHOCYTES # (AUTO) 0.2 X10^3/uL (1.3-2.9); LYMPHOCYTES % (AUTO) 2.7 % (21.0-51.0); MEAN CORPUSCULAR HEMOGLOBIN 33.3 pg (27.0-34.0); MEAN CORPUSCULAR HGB CONC 32.3 g/dL (33.0-35.0); MEAN CORPUSCULAR VOLUME 103.2 fL (80.0-100.0); MEAN PLATELET VOLUME 7.8 fL (7.4-11.0); MONOCYTES # (AUTO) 0.5 x10^3/uL (0.3-0.8); MONOCYTES % (AUTO) 7.1 % (0.0-13.0); NEUTROPHILS # (AUTO) 5.3 x10^3/uL (2.2-4.8); NEUTROPHILS % (AUTO) 83.7 % (42.0-75.0); PLATELET COUNT 224 X10^3/uL (150.0-450.0); RED BLOOD COUNT 2.25 X10^6/uL (3.5-5.4); RED CELL DISTRIBUTION WIDTH 14.9 % (11.6-16.5); WHITE BLOOD COUNT 6.3 X10^3/uL (3.6-10.0)
[2020-08-07 03:59] LABS: ALANINE AMINOTRANSFERASE 45 Units/L (12-78); ALBUMIN 2.8 g/dL (3.4-5.0); ALKALINE PHOSPHATASE 112 Units/L (46-116); ASPARTATE AMINO TRANSFERASE 53 Units/L (15-37); BLOOD UREA NITROGEN 37 mg/dL (7-18); CALCIUM 8.8 mg/dL (8.5-10.1); CARBON DIOXIDE 20.1 mmol/L (21-32); CHLORIDE 100 mmol/L (98-107); CKMB % 2.4 % (<4); COR CA(FOR HYPOALB) 9.8 mg/dL (8.5-10.1); COR NA(FOR HYPERGLY) 133 mmol/L (136-145); CREATINE KINASE 42 Units/L (26-192); CREATINE KINASE MB < 1.0 ng/mL (0-4.0); CREATININE 1.76 mg/dL (0.55-1.02); SODIUM 131 mmol/L (136-145); TOTAL PROTEIN 5.6 g/dL (6.4-8.2); TROPONIN I 0.02 ng/mL (0-1.5); eGFR NON BLACK RACES 30 (>60)
[2020-08-07 04:15] LABS: BAND NEUTROPHILS % 5 % (0-10); METAMYELOCYTES % 9; MYELOCYTES % 11; PLATELET MORPHOLOGY COMMENT NORMAL (NORMAL)
[2020-08-07] MEDS: TACROLIMUS 1 MG PO SCH (08:15)
[2020-08-07] MEDS ORDERED: K-DUR TAB 20 MEQ PO PRN (09:24)
[2020-08-07] MEDS ORDERED: POTASSIUM CHL 40 MEQ/NS 0.45% 500 ML IV PRN (09:24)
[2020-08-07] MEDS ORDERED: MICRO K EXTEN CAP 10 MEQ PO PRN (09:24)
[2020-08-07] MEDS ORDERED: POTASSIUM CHLORIDE LIQ 20 MEQ UDC PO PRN (09:24)
[2020-08-07] MEDS ORDERED: K-RIDER 10 MEQ/NS 100 ML 10 MEQ/100 ML BAG IV PRN (09:24)
[2020-08-07] MEDS ORDERED: KLOR-CON PO PRN (09:24)
[2020-08-07] MEDS ORDERED: POTASSIUM CHL 60 MEQ/NS 0.45% 500 ML IV PRN (09:24)
[2020-08-07] MEDS: NORVASC TAB 10 MG PO SCH (09:55)
[2020-08-07] MEDS: PREDNISONE TAB 5 MG PO SCH (09:55)
[2020-08-07] MEDS: MYCOPHENOLATE MOFETIL 500 MG PO SCH ×2 (09:56→21:02)
[2020-08-07] MEDS ORDERED: PHARMACY CONSULT - VANCOMYCIN XX SCH (10:00)
[2020-08-07] MEDS: NS 1000 ML 1,000 ML IV SCH ×2 (10:04→22:08)
[2020-08-07] MEDS: ZOSYN VIAL 3.375 GRAMS 3.375 G in NS 100 ML IV + SPIKE MINIBAG* 100 ML IV SCH ×3 (10:47→21:02)
[2020-08-07] MEDS ORDERED: VANCOMYCIN IV *PREMIX 1 G/200 ML BAG 1 G/200 ML PIGGYBACK IV SCH (11:00)
--- NOTE | 2020-08-07 12:22 | DR.H&P ---
H&P History & Physical for Day of: H&P Date: 08/07/20 Chief Complaint Chief Complaint: shortness of breath, chest pain Allergies Allergies Allergy/AdvReac Type Severity Reaction Status Date / Time codeine Allergy Verified 08/06/20 11:37 Sulfa (Sulfonamide Allergy Verified 08/06/20 11:37 Antibiotics) [SULFA] History of Present Illness History of Present Illness: Ms. Briones is a 69y/o female with a PMH Renal transplant in Apr 2020 in [facility], HTN, Diabetes, HLD and Hypothyroidism presented with worsening dyspnea. She states she has had this prior to the renal transplant and was told it's due to pulmonary edema. She is currently on 2L NC and states she feels better. She used to use O2 at night but has not in years so she returned the oxygen. She did have a fever of 102 last night. ER work up Labs: Hgb 7.5 Cr 1.35 on admission, now 1.76 BUN: 21 K: 3.2 Mg 1.4 Trop x 3 (-) COVID (-) negative Flu (-) CXR on admission: no infiltrate or effusion, no acute process Blood Cx: positive Plan: will start Zosyn and pharmacy to dose Vancomycin. Follow blood cultures. Increase IVF to 100cc/hr. Resume home medication including anti-rejection medications. Replace K and Mag as per protocol. Repeat BMP/Mag this evening. Monitor H/H. Transfuse if less than 7. Change diet to diabetic. Wean O2 as tolerated. Repear CXR. Discussed this with patient in detail. Order anemia panel. Monitor AM labs/imaging. Time spent for clinical assessment, reviewing labs/imaging, physical exam, management, decision making and documentation more than 75 mins. Past Medical History Past Medical History: Anemia, CHF, Diabetes, Hypertension, Hypothyroidism and Renal Disease Past Surgical History Surgical History: Appendectomy, Hysterectomy, Organ Transplant, Thyroidectomy and Tonsillectomy Additional Surgical History: Dialysis catheter Family History Family Medical History: Diabetes Mellitus, Coronary Artery Disease and Hypertension Social History Does patient currently use any type of tobacco product: No Have you used tobacco products in the last 12 months: No Type of Tobacco Use: None Does any household member use tobacco: No Alcohol Use: None Drug Use: None Medications Home Medications: codeine Allergy (Verified 08/06/20 11:37) Sulfa (Sulfonamide Antibiotics) [SULFA] Allergy (Verified 08/06/20 11:37) CONTINUE taking the following medications insulin NPH isoph U-100 human [Novolin N NPH U-100 Insulin] 6 unit SUBCUT .PER SLIDING SCALE 08/06/20 [History] insulin aspart U-100 [Novolog U-100 Insulin aspart] 4 unit CONTINUOUS SUBCUTANEOUS INFUSION BID 08/06/20 [History] mycophenolate mofetil [CellCept] 500 mg PO BID 08/06/20 [History] prednisone 10 mg PO DAILY 08/06/20 [History] tacrolimus [Envarsus XR] 2 mg PO DAILY 08/06/20 [History] Labs Result Diagrams: 08/07/20 03:30 08/07/20 03:30 Labs: Laboratory WBC 6.3 X10^3/uL (3.6-10.0) 08/07/20 03:30 RBC 2.25 X10^6/uL (3.5-5.4) L 08/07/20 03:30 Hgb 7.5 g/dL (12.0-16.0) L 08/07/20 03:30 Hct 23.3 % (36.0-47.0) L 08/07/20 03:30 MCV 103.2 fL (80.0-100.0) H 08/07/20 03:30 MCH 33.3 pg (27.0-34.0) 08/07/20 03:30 MCHC 32.3 g/dL (33.0-35.0) L 08/07/20 03:30 RDW 14.9 % (11.6-16.5) 08/07/20 03:30 Plt Count 224 X10^3/uL (150.0-450.0) 08/07/20 03:30 Plt Count Comment Adequate (ADEQUATE) 08/07/20 03:30 MPV 7.8 fL (7.4-11.0) 08/07/20 03:30 Neut % (Auto) 83.7 % (42.0-75.0) H 08/07/20 03:30 Lymph % (Auto) 2.7 % (21.0-51.0) L 08/07/20 03:30 [place] % (Auto) 7.1 % (0.0-13.0) 08/07/20 03:30 Eos % (Auto) 6.1 % (0.9-2.9) H 08/07/20 03:30 Baso % (Auto) 0.4 % (0.2-1.0) 08/07/20 03:30 Neut # (Auto) 5.3 x10^3/uL (2.2-4.8) H 08/07/20 03:30 Lymph # (Auto) 0.2 X10^3/uL (1.3-2.9) L 08/07/20 03:30 [place] # (Auto) 0.5 x10^3/uL (0.3-0.8) 08/07/20 03:30 Eos # (Auto) 0.4 x10^3/uL (0.0-0.2) H 08/07/20 03:30 Baso # (Auto) 0.0 X10^3/uL (0.0-0.1) 08/07/20 03:30 Absolute Nucleated RBC 0.0 /100WBC 08/07/20 03:30 Total Counted 100 08/07/20 03:30 Neutrophils % (Manual) 62 % (39-76) 08/07/20 03:30 Band Neutrophils % 5 % (0-10) 08/07/20 03:30 Lymphocytes % (Manual) 4 % (13-43) L 08/07/20 03:30 Monocytes % (Manual) 9 % (4-9) 08/07/20 03:30 Eosinophils % (Manual) Cancelled 08/06/20 12:35 Basophils % (Manual) Cancelled 08/06/20 12:35 Metamyelocytes % 9 08/07/20 03:30 Myelocytes % 11 08/07/20 03:30 Promyelocytes % Cancelled 08/06/20 12:35 Nucleated RBCs Cancelled 08/06/20 12:35 Atypical Lymphocytes Cancelled 08/06/20 12:35 Blast Cells Cancelled 08/06/20 12:35 Smudge Cells Cancelled 08/06/20 12:35 Toxic Granulation Cancelled 08/06/20 12:35 Dohle Bodies Cancelled 08/06/20 12:35 Jasper Rods Cancelled 08/06/20 12:35 Plt Clumps, EDTA Cancelled 08/06/20 12:35 Giant Platelets Cancelled 08/06/20 12:35 Plt Morphology Comment Normal (NORMAL) 08/07/20 03:30 RBC Morphology Normal (NORMAL) 08/07/20 03:30 Dimorphic RBCs Cancelled 08/06/20 12:35 Polychromasia Cancelled 08/06/20 12:35 Hypochromasia Cancelled 08/06/20 12:35 Poikilocytosis Cancelled 08/06/20 12:35 Basophilic Stippling Cancelled 08/06/20 12:35 Anisocytosis Cancelled 08/06/20 12:35 Microcytosis Cancelled 08/06/20 12:35 Macrocytosis Cancelled 08/06/20 12:35 Spherocytes Cancelled 08/06/20 12:35 Pappenheimer Bodies Cancelled 08/06/20 12:35 Sickle Cells Cancelled 08/06/20 12:35 Target Cells Cancelled 08/06/20 12:35 Tear Drop Cells Cancelled 08/06/20 12:35 Ovalocytes Cancelled 08/06/20 12:35 Stomatocytes Cancelled 08/06/20 12:35 Helmet Cells Cancelled 08/06/20 12:35 [place] Bodies Cancelled 08/06/20 12:35 [place] Rings Cancelled 08/06/20 12:35 [place] Cells Cancelled 08/06/20 12:35 Crenated Cell Cancelled 08/06/20 12:35 Acanthocytes (Spur) Cancelled 08/06/20 12:35 Rouleaux Cancelled 08/06/20 12:35 Schistocytes Cancelled 08/06/20 12:35 PT 15.1 SECONDS (11.8-14.3) 08/06/20 18:49 INR Target Range - 08/06/20 18:49 INR 1.22 (0.8-1.3) 08/06/20 18:49 APTT 30.1 SECONDS (22.9-36.5) 08/06/20 18:49 PTT Comment - 08/06/20 18:49 D-Dimer 1.05 ug/ml (0.0-0.57) H* 08/06/20 18:49 Sodium 131 mmol/L (136-145) L 08/07/20 03:30 Corrected Sodium 133 mmol/L (136-145) L 08/07/20 03:30 Potassium 3.2 mmol/L (3.5-5.1) L 08/07/20 03:30 Chloride 100 mmol/L (98-107) 08/07/20 03:30 Carbon Dioxide 20.1 mmol/L (21-32) L 08/07/20 03:30 BUN 37 mg/dL (7-18) H 08/07/20 03:30 Creatinine 1.76 mg/dL (0.55-1.02) H 08/07/20 03:30 Est GFR (MDRD) Af Amer 37 (>60) L 08/07/20 03:30 Est GFR (MDRD) Non-Af 30 (>60) L 08/07/20 03:30 Glucose 164 mg/dL (65-99) H 08/07/20 03:30 POC Glucose (mg/dL) 163 mg/dL (65-99) H 08/07/20 05:35 Calcium 8.8 mg/dL (8.5-10.1) 08/07/20 03:30 Corrected Calcium 9.8 mg/dL (8.5-10.1) 08/07/20 03:30 Magnesium 1.4 mg/dL (1.7-2.9) L 08/07/20 03:30 Total Bilirubin 1.20 mg/dL (0.2-1.0) H 08/07/20 03:30 AST 53 Units/L (15-37) H 08/07/20 03:30 ALT 45 Units/L (12-78) 08/07/20 03:30 Alkaline Phosphatase 112 Units/L (46-116) 08/07/20 03:30 Creatine Kinase 42 Units/L (26-192) 08/07/20 03:30 CK-MB (CK-2) < 1.0 ng/mL (0-4.0) 08/07/20 03:30 CK/CKMB % Calc 2.4 % (<4) 08/07/20 03:30 Troponin I 0.02 ng/mL (0-1.5) 08/07/20 03:30 B-Natriuretic Peptide 589 pg/mL (0-79) H* 08/06/20 12:35 Total Protein 5.6 g/dL (6.4-8.2) L 08/07/20 03:30 Albumin 2.8 g/dL (3.4-5.0) L 08/07/20 03:30 Globulin 2.8 g/dL (2.5-4.5) 08/07/20 03:30 Albumin/Globulin Ratio 1.0 Ratio (1.1-2.1) L 08/07/20 03:30 SARS-CoV-2 (PCR) Negative (NEGATIVE) 08/06/20 12:20 Influenza Type A Ag Cancelled 08/06/20 12:20 Influenza Type A (PCR) Negative (NEGATIVE) 08/06/20 12:20 Influenza Type B Ag Cancelled 08/06/20 12:20 Influenza Type B (PCR) Negative (NEGATIVE) 08/06/20 12:20 RSV (PCR) Negative (NEGATIVE) 08/06/20 12:20 Review of Systems Constitutional: Fever and Weakness Eyes: No Symptoms Reported ENT: No Symptoms Reported Respiratory: Shortness of Breath and SOB with Excertion Cardiovascular: Chest Pain Gastrointestinal: No Symptoms Reported Genitourinary: No Symptoms Reported Musculoskeletal: No Symptoms Reported Skin: No Symptoms Reported Neurological: No Symptoms Reported Physical Exam Vital Signs: Temperature 97.6 F Pulse Rate [Left Radial] 70 Pulse Rate [Left Brachial] 72 Pulse Rate 70 Respiratory Rate 20 Blood Pressure [Left Arm] 123/58 Blood Pressure [Right Arm] 138/91 Blood Pressure 130/57 O2 Sat by Pulse Oximetry 97 Oriented: Normal Eyes: Normal Ear: Normal Nose: Normal Respiratory: Clear Throughout Cardiovascular: Normal Auscultation: Bowel Sounds: Normal Palpation: Normal Tenderness: Normal Skin: Normal Musculoskeletal: Normal Psychiatric: Normal Mood Description: Calm Speech Pattern: Clear and Appropriate Assessment/Plan (1) Bacteremia: Status: Acute (2) Hypokalemia: Status: Acute (3) Acute on chronic renal failure: Qualifiers: Acute renal failure type: unspecified Chronic kidney disease stage: unspecified stage Qualified Code(s): N17.9 - Acute kidney failure, unspecified; N18.9 - Chronic kidney disease, unspecified Status: Acute (4) Hypomagnesemia: Status: Acute (5) Acute on chronic respiratory failure: Qualifiers: Respiratory failure complication: hypoxia Qualified Code(s): J96.21 - Acute and chronic respiratory failure with hypoxia Status: Acute (6) Sarcoidosis of lung: Status: Chronic (7) Hyperlipidemia: Qualifiers: Hyperlipidemia type: unspecified Qualified Code(s): E78.5 - Hyperlipidemia, unspecified Status: Acute (8) Hypertension: Qualifiers: Hypertension type: essential hypertension Qualified Code(s): I10 - Essential (primary) hypertension Status: Chronic (9) Hypothyroidism: Qualifiers: Hypothyroidism type: acquired Qualified Code(s): E03.9 - Hypothyroidism, unspecified Status: Chronic (10) Renal transplant recipient: Status: Acute Review H&P Reviewed: Yes Patient was examined?: Yes
[2020-08-07] MEDS: HumuLIN R SC PRN ×2 (17:44→21:01)
[2020-08-07] MEDS ORDERED: APRESOLINE INJ 20 MG VIAL IVP ONE (18:42)
[2020-08-07] MEDS: TYLENOL 500 MG TAB EXTRA STRENGTH PO PRN (19:04)
[2020-08-07] MEDS ORDERED: RESTORIL CAP 15 MG PO ONE (20:00)
[2020-08-07 20:58] LABS: CKMB % 2.5 % (<4); CREATINE KINASE 56 Units/L (26-192); CREATINE KINASE MB 1.4 ng/mL (0-4.0); TROPONIN I < 0.02 ng/mL (0-1.5)
[2020-08-07] MEDS ORDERED: NS 250 ML IV 250 ML IV ONE (21:03)
--- NOTE | 2020-08-07 21:06 | RAD ---
HISTORYFEVER HYPOXIASTUDYCHEST, PA/LAT ADULTCOMPARISONNone availableTECHNIQUEPA and lateral projections, 2 imagesFINDINGSCardiac silhouette is normal in size and configuration.Pulmonary vascular sizes are normal.No effusion.No focal airspace disease.No pneumothorax.No acute osseous abnormalityIMPRESSIONNo imaging findings of acute cardiopulmonary disease or significant interval changes.Electronically signed by: Raheem Brown (Aug 07, 2020 21:04:24)
[2020-08-07] MEDS: NS 250 ML IV 250 ML IV PRN (22:07)
[2020-08-08] MEDS: ZOSYN VIAL 3.375 GRAMS 3.375 G in NS 100 ML IV + SPIKE MINIBAG* 100 ML IV SCH ×3 (05:07→21:06)
[2020-08-08] MEDS: TYLENOL 500 MG TAB EXTRA STRENGTH PO PRN ×3 (05:13→20:54)
[2020-08-08 06:40] LABS: BASOPHILS % (AUTO) 0.4 % (0.2-1.0); EOSINOPHILS % (AUTO) 0.9 % (0.9-2.9); HEMATOCRIT 26.7 % (36.0-47.0); HEMOGLOBIN 8.5 g/dL (12.0-16.0); LYMPHOCYTES # (AUTO) 0.1 X10^3/uL (1.3-2.9); LYMPHOCYTES % (AUTO) 2.8 % (21.0-51.0); MEAN CORPUSCULAR HEMOGLOBIN 32.8 pg (27.0-34.0); MEAN CORPUSCULAR HGB CONC 31.8 g/dL (33.0-35.0); MEAN CORPUSCULAR VOLUME 103.2 fL (80.0-100.0); MEAN PLATELET VOLUME 8.9 fL (7.4-11.0); MONOCYTES # (AUTO) 0 x10^3/uL (0.3-0.8); MONOCYTES % (AUTO) 0.4 % (0.0-13.0); NEUTROPHILS # (AUTO) 4.5 x10^3/uL (2.2-4.8); NEUTROPHILS % (AUTO) 95.5 % (42.0-75.0); PLATELET COUNT 128 X10^3/uL (150.0-450.0); RED BLOOD COUNT 2.59 X10^6/uL (3.5-5.4); RED CELL DISTRIBUTION WIDTH 14.8 % (11.6-16.5); WHITE BLOOD COUNT 4.7 X10^3/uL (3.6-10.0)
[2020-08-08 06:54] LABS: ALBUMIN 2.9 g/dL (3.4-5.0); CALCIUM 9.6 mg/dL (8.5-10.1); CARBON DIOXIDE 16.3 mmol/L (21-32); COR CA(FOR HYPOALB) 10.5 mg/dL (8.5-10.1); CREATININE 2.19 mg/dL (0.55-1.02); MAGNESIUM 2.4 mg/dL (1.7-2.9); TOTAL PROTEIN 6.5 g/dL (6.4-8.2)
[2020-08-08 07:31] LABS: BAND NEUTROPHILS % 10 % (0-10); METAMYELOCYTES % 11; MYELOCYTES % 6
[2020-08-08 07:32] LABS: PLATELET MORPHOLOGY COMMENT NORMAL (NORMAL)
[2020-08-08] MEDS: NORVASC TAB 10 MG PO SCH (08:27)
[2020-08-08] MEDS: PREDNISONE TAB 5 MG PO SCH (08:28)
[2020-08-08] MEDS: MYCOPHENOLATE MOFETIL 500 MG PO SCH ×2 (08:28→21:06)
[2020-08-08] MEDS: TACROLIMUS 1 MG PO SCH (08:32)
[2020-08-08] MEDS ORDERED: IMODIUM CAP 2 MG PO PRN (10:43)
--- NOTE | 2020-08-08 10:52 | PCM.PROG ---
Progress Note Progress Note for Day of Date of Exam: 08/08/20 Subjective Subjective: Patient seen at bedside. She states she feels worse today, more weak and increased back pain. She did have elevated blood pressure yesterday and some chest tightness. Cardiac profile was negative and she was given hydralazine 10 mg IV. She is currently on 2L NC. She has been afebrile. She states she has been anxious. She would like to go to [place], [place] where she had her renal transplant if possible tomorrow. Labs: Hgb 8.5 Plt 128 K: 4.1 BUN/Cr: 49/2.19 Glucose 198 FOBT (-) CXR: no acute process Blood Cx: gram (-) rods Plan: Will DC Vancomycin and continue zosyn. Continue gentle hydration at 75cc/hr. Follow blood cultures. Resume home medications including Zoloft, Levot hyroxine and loperamide. Will add Xanax 0.5 mg BID prn for anxiety. Monitor AM labs/Imaging. Wean O2 as tolerated. Discussed with patient that Dr. Grewal will see her in the morning and can consider possible transfer to [place]. Patient verbalized understanding. Past Medical Family Social History Past Med/Fam/Surg Hx: No changes since H&P Allergies: Allergies codeine Allergy (Verified 08/06/20 11:37) Sulfa (Sulfonamide Antibiotics) [SULFA] Allergy (Verified 08/06/20 11:37) Review of Systems ROS: No change since H&P Vital Signs and I&O's Vital Signs: Temperature 99.3 F Pulse Rate [Left Radial] 88 Pulse Rate [Left Brachial] 72 Pulse Rate 70 Respiratory Rate 18 Blood Pressure [Left Arm] 142/65 Blood Pressure [Right Arm] 138/91 Blood Pressure 130/57 O2 Sat by Pulse Oximetry 94 Intake and Output: Intake & Output 08/05/20 08/06/20 08/07/20 08/08/20 23:59 23:59 23:59 23:59 Intake Total 720 / 720 1945 / 1945 925 / 925 Output Total 390 / 390 295 / 295 Balance 720 / 720 1555 / 1555 630 / 630 Physical Exam Oriented: Normal Eyes: Normal Ear: Normal Nose: Normal Respiratory: Normal Cardiovascular: Normal Auscultation: Bowel Sounds: Normal Tenderness: Normal Skin: Normal Musculoskeletal: Normal Psychiatric: Anxiety Mood Description: Anxious Affect: Anxious Speech Pattern: Clear and Appropriate Laboratory and Diagnostics Result Diagrams: 08/08/20 06:15 08/08/20 06:15 Labs: 08/06/20 22:41 Blood Blood Culture - Preliminary 08/06/20 22:32 Blood Blood Culture - Preliminary 08/06/20 12:35 Blood Blood Culture - Preliminary Laboratory WBC 4.7 X10^3/uL (3.6-10.0) 08/08/20 06:15 RBC 2.59 X10^6/uL (3.5-5.4) L 08/08/20 06:15 Hgb 8.5 g/dL (12.0-16.0) L 08/08/20 06:15 Hct 26.7 % (36.0-47.0) L 08/08/20 06:15 MCV 103.2 fL (80.0-100.0) H 08/08/20 06:15 MCH 32.8 pg (27.0-34.0) 08/08/20 06:15 MCHC 31.8 g/dL (33.0-35.0) L 08/08/20 06:15 RDW 14.8 % (11.6-16.5) 08/08/20 06:15 Plt Count 128 X10^3/uL (150.0-450.0) L 08/08/20 06:15 Plt Count Comment Decreased (ADEQUATE) A 08/08/20 06:15 MPV 8.9 fL (7.4-11.0) 08/08/20 06:15 Neut % (Auto) 95.5 % (42.0-75.0) H 08/08/20 06:15 Lymph % (Auto) 2.8 % (21.0-51.0) L 08/08/20 06:15 [place] % (Auto) 0.4 % (0.0-13.0) 08/08/20 06:15 Eos % (Auto) 0.9 % (0.9-2.9) 08/08/20 06:15 Baso % (Auto) 0.4 % (0.2-1.0) 08/08/20 06:15 Neut # (Auto) 4.5 x10^3/uL (2.2-4.8) 08/08/20 06:15 Lymph # (Auto) 0.1 X10^3/uL (1.3-2.9) L 08/08/20 06:15 [place] # (Auto) 0 x10^3/uL (0.3-0.8) L 08/08/20 06:15 Eos # (Auto) 0.0 x10^3/uL (0.0-0.2) 08/08/20 06:15 Baso # (Auto) 0.0 X10^3/uL (0.0-0.1) 08/08/20 06:15 Absolute Nucleated RBC 0.1 /100WBC 08/08/20 06:15 Total Counted 100 08/08/20 06:15 Neutrophils % (Manual) 67 % (39-76) 08/08/20 06:15 Band Neutrophils % 10 % (0-10) 08/08/20 06:15 Lymphocytes % (Manual) 3 % (13-43) L 08/08/20 06:15 Monocytes % (Manual) 3 % (4-9) L 08/08/20 06:15 Eosinophils % (Manual) Cancelled 08/06/20 12:35 Basophils % (Manual) Cancelled 08/06/20 12:35 Metamyelocytes % 11 08/08/20 06:15 Myelocytes % 6 08/08/20 06:15 Promyelocytes % Cancelled 08/06/20 12:35 Nucleated RBCs Cancelled 08/06/20 12:35 Atypical Lymphocytes Cancelled 08/06/20 12:35 Blast Cells Cancelled 08/06/20 12:35 Smudge Cells Cancelled 08/06/20 12:35 Toxic Granulation Cancelled 08/06/20 12:35 Dohle Bodies Cancelled 08/06/20 12:35 [place]asper Rods Cancelled 08/06/20 12:35 Plt Clumps, EDTA Cancelled 08/06/20 12:35 Giant Platelets Cancelled 08/06/20 12:35 Plt Morphology Comment Normal (NORMAL) 08/08/20 06:15 RBC Morphology Abnormal (NORMAL) A 08/08/20 06:15 Dimorphic RBCs Cancelled 08/06/20 12:35 Polychromasia Cancelled 08/06/20 12:35 Hypochromasia Cancelled 08/06/20 12:35 Poikilocytosis Cancelled 08/06/20 12:35 Basophilic Stippling Cancelled 08/06/20 12:35 Anisocytosis Cancelled 08/06/20 12:35 Microcytosis Cancelled 08/06/20 12:35 Macrocytosis Slight A 08/08/20 06:15 Spherocytes Cancelled 08/06/20 12:35 Pappenheimer Bodies Cancelled 08/06/20 12:35 Sickle Cells Cancelled 08/06/20 12:35 Target Cells Cancelled 08/06/20 12:35 Tear Drop Cells Cancelled 08/06/20 12:35 Ovalocytes Cancelled 08/06/20 12:35 Stomatocytes Cancelled 08/06/20 12:35 Helmet Cells Cancelled 08/06/20 12:35 [place] Bodies Cancelled 08/06/20 12:35 [place] Rings Cancelled 08/06/20 12:35 [place] Cells Cancelled 08/06/20 12:35 Crenated Cell Cancelled 08/06/20 12:35 Acanthocytes (Spur) Cancelled 08/06/20 12:35 Rouleaux Cancelled 08/06/20 12:35 Schistocytes Cancelled 08/06/20 12:35 PT 15.1 SECONDS (11.8-14.3) 08/06/20 18:49 INR Target Range - 08/06/20 18:49 INR 1.22 (0.8-1.3) 08/06/20 18:49 APTT 30.1 SECONDS (22.9-36.5) 08/06/20 18:49 PTT Comment - 08/06/20 18:49 D-Dimer 1.05 ug/ml (0.0-0.57) H* 08/06/20 18:49 Sodium 130 mmol/L (136-145) L 08/08/20 06:15 Corrected Sodium 132 mmol/L (136-145) L 08/08/20 06:15 Potassium 4.1 mmol/L (3.5-5.1) 08/08/20 06:15 Chloride 98 mmol/L (98-107) 08/08/20 06:15 Carbon Dioxide 16.3 mmol/L (21-32) L 08/08/20 06:15 BUN 49 mg/dL (7-18) H 08/08/20 06:15 Creatinine 2.19 mg/dL (0.55-1.02) H 08/08/20 06:15 Est GFR (MDRD) Af Amer 28 (>60) L 08/08/20 06:15 Est GFR (MDRD) Non-Af 24 (>60) L 08/08/20 06:15 Glucose 198 mg/dL (65-99) H 08/08/20 06:15 POC Glucose (mg/dL) 163 mg/dL (65-99) H 08/08/20 05:49 Calcium 9.6 mg/dL (8.5-10.1) 08/08/20 06:15 Corrected Calcium 10.5 mg/dL (8.5-10.1) H 08/08/20 06:15 Magnesium 2.4 mg/dL (1.7-2.9) 08/08/20 06:15 Total Bilirubin 1.10 mg/dL (0.2-1.0) H 08/08/20 06:15 AST 30 Units/L (15-37) 08/08/20 06:15 ALT 32 Units/L (12-78) 08/08/20 06:15 Alkaline Phosphatase 129 Units/L (46-116) H 08/08/20 06:15 Creatine Kinase 56 Units/L (26-192) 08/07/20 20:26 CK-MB (CK-2) 1.4 ng/mL (0-4.0) 08/07/20 20:26 CK/CKMB % Calc 2.5 % (<4) 08/07/20 20:26 Troponin I < 0.02 ng/mL (0-1.5) 08/07/20 20:26 B-Natriuretic Peptide 589 pg/mL (0-79) H* 08/06/20 12:35 Total Protein 6.5 g/dL (6.4-8.2) 08/08/20 06:15 Albumin 2.9 g/dL (3.4-5.0) L 08/08/20 06:15 Globulin 3.6 g/dL (2.5-4.5) 08/08/20 06:15 Albumin/Globulin Ratio 0.8 Ratio (1.1-2.1) L 08/08/20 06:15 Stool Description Fob tube 08/07/20 19:05 Stl Occult Blood (IFOB) Negative (NEGATIVE) 08/07/20 19:05 SARS-CoV-2 (PCR) Negative (NEGATIVE) 08/06/20 12:20 Influenza Type A Ag Cancelled 08/06/20 12:20 Influenza Type A (PCR) Negative (NEGATIVE) 08/06/20 12:20 Influenza Type B Ag Cancelled 08/06/20 12:20 Influenza Type B (PCR) Negative (NEGATIVE) 08/06/20 12:20 RSV (PCR) Negative (NEGATIVE) 08/06/20 12:20 Plan (1) Bacteremia: Status: Acute (2) Hypokalemia: Status: Acute (3) Acute on chronic renal failure: Status: Acute Qualifiers: Acute renal failure type: unspecified Chronic kidney disease stage: unspecified stage Qualified Code(s): N17.9 - Acute kidney failure, unspecified; N18.9 - Chronic kidney disease, unspecified (4) Hypomagnesemia: Status: Acute (5) Acute on chronic respiratory failure: Status: Acute Qualifiers: Respiratory failure complication: hypoxia Qualified Code(s): J96.21 - Acute and chronic respiratory failure with hypoxia (6) Sarcoidosis of lung: Status: Chronic (7) Hyperlipidemia: Status: Acute Qualifiers: Hyperlipidemia type: unspecified Qualified Code(s): E78.5 - Hyperlipidemia, unspecified (8) Hypertension: Status: Chronic Qualifiers: Hypertension type: essential hypertension Qualified Code(s): I10 - Essential (primary) hypertension (9) Hypothyroidism: Status: Chronic Qualifiers: Hypothyroidism type: acquired Qualified Code(s): E03.9 - Hypothyroidism, unspecified (10) Renal transplant recipient: Status: Acute
[2020-08-08] MEDS: XANAX PO PRN ×2 (10:55→20:55)
[2020-08-08] MEDS: NS 1000 ML 1,000 ML IV SCH (11:29)
[2020-08-08] MEDS: COREG TAB 25 MG PO SCH ×2 (11:45→20:54)
[2020-08-08] MEDS: HumuLIN R SC PRN ×2 (12:22→20:55)
[2020-08-08] MEDS: ZOLOFT PO SCH (17:12)
[2020-08-09 00:28] LABS: BILIRUBIN,URINE NEGATIVE (NEGATIVE); BLOOD/HEMOGLOBIN,URINE 1+ (NEGATIVE); GLUCOSE, URINE NEGATIVE (NEGATIVE); KETONES,URINE NEGATIVE (NEGATIVE); LEUKOCYTE ESTERASE ,URINE NEGATIVE (NEGATIVE); NITRITES,URINE NEGATIVE (NEGATIVE); PROTEIN,URINE 2+ (NEGATIVE); UROBILINOGEN,URINE NORMAL (NORMAL)
[2020-08-09 00:43] LABS: APPEARANCE,URINE HAZY (CLEAR); BACTERIA,URINE 2+ /HPF (NEGATIVE); COLOR,URINE YELLOW (YELLOW); RBC,URINE NONE SEEN /HPF (0-3); SQUAMOUS EPITHELIAL CELL,UR FEW /HPF (NEGATIVE)
[2020-08-09] MEDS: NS 1000 ML 1,000 ML IV SCH ×2 (01:13→14:16)
[2020-08-09] MEDS: ZOSYN VIAL 3.375 GRAMS 3.375 G in NS 100 ML IV + SPIKE MINIBAG* 100 ML IV SCH ×3 (05:19→21:25)
--- NOTE | 2020-08-09 06:21 | RAD ---
HISTORYSOBSTUDYCHEST, 1 [id number]/06/2021.TECHNIQUEAP view of the chestFINDINGSThe cardiac silhouette is mildly enlarged. Mediastinal contours appear stable. Mild patchy right medial base opacity is present. No discernible pleural effusion or pneumothorax.IMPRESSIONPatchy right medial base opacity may represent atelectasis or pneumonia.Electronically signed by: Mau Knott (Aug 09, 2020 06:19:29)
[2020-08-09 07:06] LABS: ALBUMIN 2.1 g/dL (3.4-5.0); CALCIUM 8.9 mg/dL (8.5-10.1); COR CA(FOR HYPOALB) 10.4 mg/dL (8.5-10.1); CREATININE 2.18 mg/dL (0.55-1.02); TOTAL PROTEIN 5.4 g/dL (6.4-8.2)
[2020-08-09 07:24] LABS: BASOPHILS % (AUTO) 0.5 % (0.2-1.0); EOSINOPHILS % (AUTO) 0.6 % (0.9-2.9); HEMATOCRIT 20.1 % (36.0-47.0); LYMPHOCYTES # (AUTO) 0.2 X10^3/uL (1.3-2.9); LYMPHOCYTES % (AUTO) 2.8 % (21.0-51.0); MEAN CORPUSCULAR HEMOGLOBIN 33.7 pg (27.0-34.0); MEAN CORPUSCULAR HGB CONC 33.1 g/dL (33.0-35.0); MEAN CORPUSCULAR VOLUME 101.7 fL (80.0-100.0); MEAN PLATELET VOLUME 9.5 fL (7.4-11.0); MONOCYTES # (AUTO) 0.1 x10^3/uL (0.3-0.8); MONOCYTES % (AUTO) 1.9 % (0.0-13.0); NEUTROPHILS # (AUTO) 5.7 x10^3/uL (2.2-4.8); NEUTROPHILS % (AUTO) 94.2 % (42.0-75.0); PLATELET COUNT 107 X10^3/uL (150.0-450.0); RED BLOOD COUNT 1.97 X10^6/uL (3.5-5.4); RED CELL DISTRIBUTION WIDTH 15.3 % (11.6-16.5)
[2020-08-09 07:34] LABS: HEMOGLOBIN 6.6 g/dL (12.0-16.0)
[2020-08-09 07:43] LABS: BAND NEUTROPHILS % 9 % (0-10)
[2020-08-09 07:44] LABS: METAMYELOCYTES % 5; MYELOCYTES % 4; PLATELET MORPHOLOGY COMMENT NORMAL (NORMAL)
[2020-08-09] MEDS ORDERED: BENADRYL INJ 50 MG VIAL IVP PRN (09:32)
[2020-08-09] MEDS ORDERED: NS 500 ML IV 500 ML IV ONE (09:32)
[2020-08-09] MEDS ORDERED: TYLENOL 325 MG TAB PO PRN (09:32)
[2020-08-09] MEDS: COREG TAB 25 MG PO SCH ×2 (09:40→21:23)
[2020-08-09] MEDS: XANAX PO PRN (09:40)
[2020-08-09] MEDS: ZOLOFT PO SCH (09:40)
[2020-08-09] MEDS: NORVASC TAB 10 MG PO SCH (09:40)
[2020-08-09] MEDS: PREDNISONE TAB 5 MG PO SCH (09:40)
[2020-08-09] MEDS: TACROLIMUS 1 MG PO SCH (09:43)
[2020-08-09] MEDS: MYCOPHENOLATE MOFETIL 500 MG PO SCH ×2 (09:43→21:23)
[2020-08-09] MEDS: LEVAQUIN PREMIX IV 750 MG 750 MG/150 ML BAG IV SCH (11:13)
[2020-08-09] MEDS: SYNTHROID 125 mcg TAB PO SCH (11:13)
[2020-08-09] MEDS ORDERED: VOLTAREN 1 % GEL MULTI DOSE TUBE TOP PRN (11:30)
--- NOTE | 2020-08-09 11:51 | PCM.PROG ---
Progress Note - Progress Note for Day of Date of Exam: 08/09/20 - Subjective Subjective: IS A 69 YEAR OLD PATIENT OF OURS WHO WAS ADMITTED ON 08/06/20 FOR TREATMENT OF BACTEREMIA, ACURE ON CHRONIC RENAL FAILURE, HYPOKALEMIA, HYPOMAGNESEMIA, AND ACUTE ON CHRONIC RESPIRATORY FAILURE. SHE HAS A PMH OF SARCOIDOSIS OF LUNG, HYPERLIPIDEMIA, HYPERTENSIO, HYPOTHYROIDISM, AND HAD A KIDNEY TRANSPLANT IN APRIL 2020. ON ADMISSION, SHE WAS NOTED WITH FEVER AND SHORTNESS OF BREATH. HER SYMPTOMS STARTED A FEW DAYS PRIOR TO ARRIVAL. SHE WAS TOLD BY HER TRANSPLANT DOCTOR THAT IT WAS DUE TO PULMONARY EDEMA. HER CHEST XRAY ON ADMISSION WAS NEGATIVE FOR ACUTE FINDINGS AND HER HEMOGLOBIN WAS NOTED TO BE 7.5. SHE IS NEGATIVE FOR COVID-19 AND INFLUENZA. LAB REPORTS THAT SHE DOES HAVE POSITIVE BLOOD CULTURES. TODAY, SHE IS ALERT AND ORIENTED, LYING IN BED ON MORNING ROUNDS. SHE REPORTS CHEST PAIN THAT RADIATES TO THE BACK AND TO THE LEFT SHOULDER THIS MORNING. ON EXAMINATION, HEART IS REGULAR IN RATE AND RHYTHM. BILATERAL LUNGS ARE NOTED WITH DIMINISHED LUNG SOUNDS THROUGHOUT. ABDOMEN IS ROUND, SOFT, AND NON-TENDER WITH NORMAL BOWEL SOUNDS NOTED IN ALL QUADRANTS. HER VITALS THIS MORNING ARE: 97.9-79-20-97%-141/62. LABS WERE OBTAINED. ABNORMAL LAB VALUES INCLUDE THE FOLLOWING: RBC 1.97, HGB 6.6, HCT 20.1, PLT COUNT 107, D- DIMER 1.05, SODIUM 133, CARBON DIOXIDE 16, BUN 56, CREATININE 2.18, GLUCOSE 167, TOTAL PROTEIN 5.4, ALBUMIN 2.1. URINALYSIS WAS OBTAINED THIS MORNING AND REVEALED: WBC 3-5, RBC NONE SEEN, BACTERIA 2+, OCCULT BLOOD 1+, PROTEIN 2+. STOOL IS NEGATIVE FOR OCCULT BLOOD. URINE CULTURES ARE PENDING. BLOOD CULTURES ARE POSITIVE FOR KLEBSIELLA PNEUMONIAE. A CHEST XRAY WAS OBTAINED THIS MORNING AND REVEALED: Patchy right medial base opacity may represent atelectasis or pneumonia. SHE IS CURRENTLY RECEIVING NORMAL SALINE AT 75 ML/HR, ZOSYN 3.375G IV TID, THE POTASSIUM AND MAGNESIUM PROTOCOLS, HUMULIN R SLIDING SCALE, AND HER HOME MEDICATIONS WERE RESUMED. TODAY, WE WILL ADD LEVAQUIN 750MG IV Q48H AND WE WILL TRANSFUSE 2 UNITS OF PRBC. WE WILL CONSULT WITH HER TRANSPLANT DOCTORS BY PHONE TODAY. OTHERWISE, WE PLAN TO FOLLOW UP WITH AM LABS AND CHEST XRAY AND CONTINUE TO MONITOR. TIMES SPENT ON CLINICAL ASSESSMENT, REVIEWING LABS AND IMAGING, DECISION MAKING, AND DOCUMENTATION GREATER THAN 75 MINUTES. - Past Medical Family Social History Past Med/Fam/Surg Hx: No changes since H&P Allergies: Allergies codeine Allergy (Verified 08/06/20 11:37) Sulfa (Sulfonamide Antibiotics) [SULFA] Allergy (Verified 08/06/20 11:37) - Review of Systems ROS: No change since H&P - Vital Signs and I&O's Vital Signs: Temperature 97.9 F Pulse Rate [Left Radial] 79 Pulse Rate [Left Brachial] 72 Pulse Rate 70 Respiratory Rate 20 Blood Pressure [Left Arm] 141/62 Blood Pressure [Right Arm] 138/91 Blood Pressure 130/57 O2 Sat by Pulse Oximetry 97 Intake and Output: Intake & Output 08/06/20 08/07/20 08/08/20 08/09/20 11:59 11:59 11:59 11:59 Intake Total 960 / 960 2630 / 2630 3852 / 3852 Output Total 685 / 685 1700 / 1700 Balance 960 / 960 1945 / 1945 2152 / 2152 - Physical Exam Oriented: Normal Eyes: Normal Ear: Normal Nose: Normal Throat: Normal Respiratory: Generalized, Diminished Cardiovascular: Normal : Normal Auscultation: Bowel Sounds: Normal Tenderness: Normal Skin: Normal Musculoskeletal: Normal Psychiatric: Anxiety Mood Description: Anxious Affect: Anxious Speech Pattern: Clear, Appropriate - Laboratory and Diagnostics Result Diagrams: 08/09/20 07:10 08/09/20 05:30 Labs: 08/06/20 22:41 Blood Blood Culture - Final Klebsiella Pneumoniae 08/06/20 22:32 Blood Blood Culture - Final Klebsiella Pneumoniae 08/06/20 13:16 Blood Blood Culture - Final Klebsiella Pneumoniae 08/06/20 12:35 Blood Blood Culture - Final Klebsiella Pneumoniae Laboratory WBC 6.0 X10^3/uL (3.6-10.0) 08/09/20 07:10 RBC 1.97 X10^6/uL (3.5-5.4) L 08/09/20 07:10 Hgb 6.6 g/dL (12.0-16.0) L* 08/09/20 07:10 Hct 20.1 % (36.0-47.0) L 08/09/20 07:10 MCV 101.7 fL (80.0-100.0) H 08/09/20 07:10 MCH 33.7 pg (27.0-34.0) 08/09/20 07:10 MCHC 33.1 g/dL (33.0-35.0) 08/09/20 07:10 RDW 15.3 % (11.6-16.5) 08/09/20 07:10 Plt Count 107 X10^3/uL (150.0-450.0) L 08/09/20 07:10 Plt Count Comment Decreased (ADEQUATE) A 08/09/20 07:10 MPV 9.5 fL (7.4-11.0) 08/09/20 07:10 Neut % (Auto) 94.2 % (42.0-75.0) H 08/09/20 07:10 Lymph % (Auto) 2.8 % (21.0-51.0) L 08/09/20 07:10 [place] % (Auto) 1.9 % (0.0-13.0) 08/09/20 07:10 Eos % (Auto) 0.6 % (0.9-2.9) L 08/09/20 07:10 Baso % (Auto) 0.5 % (0.2-1.0) 08/09/20 07:10 Neut # (Auto) 5.7 x10^3/uL (2.2-4.8) H 08/09/20 07:10 Lymph # (Auto) 0.2 X10^3/uL (1.3-2.9) L 08/09/20 07:10 [place] # (Auto) 0.1 x10^3/uL (0.3-0.8) L 08/09/20 07:10 Eos # (Auto) 0.0 x10^3/uL (0.0-0.2) 08/09/20 07:10 Baso # (Auto) 0.0 X10^3/uL (0.0-0.1) 08/09/20 07:10 Absolute Nucleated RBC 0.1 /100WBC 08/09/20 07:10 Total Counted 100 08/09/20 07:10 Neutrophils % (Manual) 75 % (39-76) 08/09/20 07:10 Band Neutrophils % 9 % (0-10) 08/09/20 07:10 Lymphocytes % (Manual) 2 % (13-43) L 08/09/20 07:10 Monocytes % (Manual) 5 % (4-9) 08/09/20 07:10 Eosinophils % (Manual) Cancelled 08/06/20 12:35 Basophils % (Manual) Cancelled 08/06/20 12:35 Metamyelocytes % 5 08/09/20 07:10 Myelocytes % 4 08/09/20 07:10 Promyelocytes % Cancelled 08/06/20 12:35 Nucleated RBCs Cancelled 08/06/20 12:35 Atypical Lymphocytes Cancelled 08/06/20 12:35 Blast Cells Cancelled 08/06/20 12:35 Smudge Cells Cancelled 08/06/20 12:35 Toxic Granulation Cancelled 08/06/20 12:35 Dohle Bodies Cancelled 08/06/20 12:35 [place] Rods Cancelled 08/06/20 12:35 Plt Clumps, EDTA Cancelled 08/06/20 12:35 Giant Platelets Cancelled 08/06/20 12:35 Plt Morphology Comment Normal (NORMAL) 08/09/20 07:10 RBC Morphology Normal (NORMAL) 08/09/20 07:10 Dimorphic RBCs Cancelled 08/06/20 12:35 Polychromasia Cancelled 08/06/20 12:35 Hypochromasia Cancelled 08/06/20 12:35 Poikilocytosis Cancelled 08/06/20 12:35 Basophilic Stippling Cancelled 08/06/20 12:35 Anisocytosis Cancelled 08/06/20 12:35 Microcytosis Cancelled 08/06/20 12:35 Macrocytosis Slight A 08/08/20 06:15 Spherocytes Cancelled 08/06/20 12:35 Pappenheimer Bodies Cancelled 08/06/20 12:35 Sickle Cells Cancelled 08/06/20 12:35 Target Cells Cancelled 08/06/20 12:35 Tear Drop Cells Cancelled 08/06/20 12:35 Ovalocytes Cancelled 08/06/20 12:35 Stomatocytes Cancelled 08/06/20 12:35 Helmet Cells Cancelled 08/06/20 12:35 [place] Bodies Cancelled 08/06/20 12:35 [place] Rings Cancelled 08/06/20 12:35 [place] Cells Cancelled 08/06/20 12:35 Crenated Cell Cancelled 08/06/20 12:35 Acanthocytes (Spur) Cancelled 08/06/20 12:35 Rouleaux Cancelled 08/06/20 12:35 Schistocytes Cancelled 08/06/20 12:35 PT 15.1 SECONDS (11.8-14.3) 08/06/20 18:49 INR Target Range - 08/06/20 18:49 INR 1.22 (0.8-1.3) 08/06/20 18:49 APTT 30.1 SECONDS (22.9-36.5) 08/06/20 18:49 PTT Comment - 08/06/20 18:49 D-Dimer 1.05 ug/ml (0.0-0.57) H* 08/06/20 18:49 Sodium 133 mmol/L (136-145) L 08/09/20 05:30 Corrected Sodium 135 mmol/L (136-145) L 08/09/20 05:30 Potassium 4.0 mmol/L (3.5-5.1) 08/09/20 05:30 Chloride 104 mmol/L (98-107) 08/09/20 05:30 Carbon Dioxide 16.0 mmol/L (21-32) L 08/09/20 05:30 BUN 56 mg/dL (7-18) H 08/09/20 05:30 Creatinine 2.18 mg/dL (0.55-1.02) H 08/09/20 05:30 Est GFR (MDRD) Af Amer 29 (>60) L 08/09/20 05:30 Est GFR (MDRD) Non-Af 24 (>60) L 08/09/20 05:30 Glucose 167 mg/dL (65-99) H 08/09/20 05:30 POC Glucose (mg/dL) 141 mg/dL (65-99) H 08/09/20 05:26 Calcium 8.9 mg/dL (8.5-10.1) 08/09/20 05:30 Corrected Calcium 10.4 mg/dL (8.5-10.1) H 08/09/20 05:30 Magnesium 2.4 mg/dL (1.7-2.9) 08/08/20 06:15 Total Bilirubin 0.50 mg/dL (0.2-1.0) 08/09/20 05:30 AST 19 Units/L (15-37) 08/09/20 05:30 ALT 23 Units/L (12-78) 08/09/20 05:30 Alkaline Phosphatase 85 Units/L (46-116) 08/09/20 05:30 Creatine Kinase 56 Units/L (26-192) 08/07/20 20:26 CK-MB (CK-2) 1.4 ng/mL (0-4.0) 08/07/20 20:26 CK/CKMB % Calc 2.5 % (<4) 08/07/20 20:26 Troponin I < 0.02 ng/mL (0-1.5) 08/07/20 20:26 B-Natriuretic Peptide 589 pg/mL (0-79) H* 08/06/20 12:35 Total Protein 5.4 g/dL (6.4-8.2) L 08/09/20 05:30 Albumin 2.1 g/dL (3.4-5.0) L 08/09/20 05:30 Globulin 3.3 g/dL (2.5-4.5) 08/09/20 05:30 Albumin/Globulin Ratio 0.6 Ratio (1.1-2.1) L 08/09/20 05:30 Specimen Type Clean catch urine 08/09/20 00:01 Urine Color Yellow (YELLOW) 08/09/20 00:01 Urine Appearance Hazy (CLEAR) 08/09/20 00:01 Urine pH 5.0 (5.0 - 8.0) 08/09/20 00:01 Ur Specific [place] 1.015 (1.000-1.030) 08/09/20 00:01 Urine Protein 2+ (NEGATIVE) 08/09/20 00:01 Urine Glucose (UA) Negative (NEGATIVE) 08/09/20 00:01 Urine Ketones Negative (NEGATIVE) 08/09/20 00:01 Urine Occult Blood 1+ (NEGATIVE) 08/09/20 00:01 Urine Nitrite Negative (NEGATIVE) 08/09/20 00:01 Urine Bilirubin Negative (NEGATIVE) 08/09/20 00:01 Urine Urobilinogen Normal (NORMAL) 08/09/20 00:01 Ur Leukocyte Esterase Negative (NEGATIVE) 08/09/20 00:01 Urine RBC None seen /HPF (0-3) 08/09/20 00:01 Urine WBC 3-5 /HPF (0-5) 08/09/20 00:01 Ur Squamous Epith Cells Few /HPF (NEGATIVE) 08/09/20 00:01 Urine Bacteria 2+ /HPF (NEGATIVE) 08/09/20 00:01 Ur Culture Indicated? Yes/culture set up 08/09/20 00:01 Stool Description Fob tube 08/07/20 19:05 Stl Occult Blood (IFOB) Negative (NEGATIVE) 08/07/20 19:05 SARS-CoV-2 (PCR) Negative (NEGATIVE) 08/06/20 12:20 Influenza Type A Ag Cancelled 08/06/20 12:20 Influenza Type A (PCR) Negative (NEGATIVE) 08/06/20 12:20 Influenza Type B Ag Cancelled 08/06/20 12:20 Influenza Type B (PCR) Negative (NEGATIVE) 08/06/20 12:20 RSV (PCR) Negative (NEGATIVE) 08/06/20 12:20 - Plan (1) Bacteremia Status: Acute Plan: FORTAZ IV, LEVAQUIN IV, IV FLUIDS, CONTINUE TO MONITOR (2) Pneumonia Status: Acute Qualifiers: Pneumonia type: due to unspecified organism Laterality: right Lung location: middle lobe of lung Qualified Code(s): J18.9 - Pneumonia, unspecified organism Plan: FORTAZ, LEVAQUIN, NEB [place], CONTINUE TO MONITOR (3) Acute on chronic renal failure Status: Acute Qualifiers: Acute renal failure type: unspecified Chronic kidney disease stage: unspecified stage Qualified Code(s): N17.9 - Acute kidney failure, unspecified; N18.9 - Chronic kidney disease, unspecified (4) Hypomagnesemia Status: Acute (5) Hypokalemia Status: Acute (6) Renal transplant recipient Status: Chronic (7) Sarcoidosis of lung Status: Chronic (8) Hyperlipidemia Status: Chronic Qualifiers: Hyperlipidemia type: mixed hyperlipidemia Qualified Code(s): E78.2 - Mixed hyperlipidemia (9) Hypertension Status: Chronic Qualifiers: Hypertension type: essential hypertension (10) Hypothyroidism Status: Chronic Qualifiers: Hypothyroidism type: acquired
[2020-08-09] MEDS: HumuLIN R SC PRN ×3 (12:30→21:24)
[2020-08-09] MEDS: XOPENEX 1.25 MG/3 ML NEBULE NEB SCH ×3 (14:00→20:30)
[2020-08-09] MEDS: MAG-OX TAB PO SCH ×2 (14:12→21:23)
[2020-08-10] MEDS: NS 250 ML IV 250 ML IV PRN (00:05)
[2020-08-10] MEDS: NS 1000 ML 1,000 ML IV SCH ×3 (03:20→15:27)
[2020-08-10] MEDS: XOPENEX 1.25 MG/3 ML NEBULE NEB SCH ×3 (05:50→20:45)
--- NOTE | 2020-08-10 06:30 | RAD ---
HISTORYSOBSTUDYCHEST, 1 [id number]/08/2021TECHNIQUEAP view of the chestFINDINGSThe cardiac and mediastinal contours appear stable. Interstitial mild opacities in the lung bases, similar to prior. No definite pleural effusion or pneumothorax.IMPRESSIONNo significant change.Electronically signed by: Mau Knott (Aug 10, 2020 06:29:09)
[2020-08-10 06:50] LABS: BASOPHILS % (AUTO) 0.2 % (0.2-1.0); EOSINOPHILS # (AUTO) 0.3 x10^3/uL (0.0-0.2); EOSINOPHILS % (AUTO) 4.6 % (0.9-2.9); HEMATOCRIT 25.1 % (36.0-47.0); HEMOGLOBIN 8.4 g/dL (12.0-16.0); LYMPHOCYTES # (AUTO) 0.2 X10^3/uL (1.3-2.9); LYMPHOCYTES % (AUTO) 2.5 % (21.0-51.0); MEAN CORPUSCULAR HEMOGLOBIN 32.2 pg (27.0-34.0); MEAN CORPUSCULAR HGB CONC 33.4 g/dL (33.0-35.0); MEAN CORPUSCULAR VOLUME 96.4 fL (80.0-100.0); MEAN PLATELET VOLUME 9.4 fL (7.4-11.0); MONOCYTES # (AUTO) 0.2 x10^3/uL (0.3-0.8); MONOCYTES % (AUTO) 3.7 % (0.0-13.0); NEUTROPHILS # (AUTO) 5.6 x10^3/uL (2.2-4.8); PLATELET COUNT 117 X10^3/uL (150.0-450.0); RED CELL DISTRIBUTION WIDTH 17.8 % (11.6-16.5); WHITE BLOOD COUNT 6.3 X10^3/uL (3.6-10.0)
[2020-08-10 07:22] LABS: ALBUMIN 2.1 g/dL (3.4-5.0); CALCIUM 9.2 mg/dL (8.5-10.1); CARBON DIOXIDE 18.3 mmol/L (21-32); COR CA(FOR HYPOALB) 10.7 mg/dL (8.5-10.1); CREATININE 1.76 mg/dL (0.55-1.02); TOTAL PROTEIN 5.5 g/dL (6.4-8.2)
[2020-08-10 07:27] LABS: MAGNESIUM 2.3 mg/dL (1.7-2.9)
[2020-08-10 07:39] LABS: PLATELET MORPHOLOGY COMMENT NORMAL (NORMAL)
[2020-08-10 07:41] LABS: BAND NEUTROPHILS % 10 % (0-10); METAMYELOCYTES % 4; MYELOCYTES % 2
[2020-08-10] MEDS: COREG TAB 25 MG PO SCH ×2 (08:59→20:19)
[2020-08-10] MEDS: PREDNISONE TAB 5 MG PO SCH (09:00)
[2020-08-10] MEDS: MAG-OX TAB PO SCH ×2 (09:00→20:19)
[2020-08-10] MEDS: NORVASC TAB 10 MG PO SCH (09:00)
[2020-08-10] MEDS: MYCOPHENOLATE MOFETIL 500 MG PO SCH ×2 (09:00→20:19)
[2020-08-10] MEDS: SYNTHROID 125 mcg TAB PO SCH (09:01)
[2020-08-10] MEDS: ZOLOFT PO SCH (09:01)
[2020-08-10] MEDS: ZOSYN VIAL 3.375 GRAMS 3.375 G in NS 100 ML IV + SPIKE MINIBAG* 100 ML IV SCH ×2 (09:01→20:19)
[2020-08-10] MEDS: TACROLIMUS 1 MG PO SCH (09:01)
--- NOTE | 2020-08-10 09:49 | PCM.PROG ---
Progress Note - Progress Note for Day of Date of Exam: 08/10/20 - Subjective Subjective: IS BEING TREATED FOR PNEUMONIA, BACTEREMIA, ACUTE ON CHRONIC RENAL FAILURE, HYPOKALEMIA, HYPOMAGNESEMIA, AND ACUTE ON CHRONIC RESPIRATORY FAILURE. SHE HAS A PMH OF SARCOIDOSIS OF LUNG, HYPERLIPIDEMIA, HYPERTENSION, HYPOTHYROIDISM, AND HAD A KIDNEY TRANSPLANT IN APRIL 2020. TODAY, SHE IS ALERT AND ORIENTED, LYING IN BED ON MORNING ROUNDS. SHE CONTINUES WITH GENERALIZED WEAKNESS AND ACHING ALL OVER. SHE ALSO CONTINUES WITH SHORTNESS OF BREATH AT TIMES. ON EXAMINATION, HEART IS REGULAR IN RATE AND RHYTHM. BILATERAL LUNGS ARE NOTED WITH DIMINISHED LUNG SOUNDS THROUGHOUT. ABDOMEN IS ROUND, SOFT, AND NON-TENDER WITH NORMAL BOWEL SOUNDS NOTED IN ALL QUADRANTS. HER VITALS THIS MORNING ARE: 97.7-81-20-94%-155/69. LABS WERE OBTAINED. ABNORMAL LAB VALUES INCLUDE THE FOLLOWING: RBC 2.60, HGB 8.4, HCT 25.1, SODIUM 135, CARBON DIOXIDE 18.3, BUN 44, CREATININE 1.76, GLUCOSE 165, BNP 513, TOTAL PROTEIN 5.5, ALBUMIN 2.1. URINE CULTURE IS PENDING. BLOOD CULTURES ARE POSITIVE FOR KLE BSIELLA PNEUMONIAE. A CHEST XRAY WAS OBTAINED THIS MORNING AND REVEALED: The cardiac and mediastinal contours appear stable. Interstitial mild opacities in the lung bases, similar to prior. No definite pleural effusion or pneumothorax. SHE IS CURRENTLY RECEIVING NORMAL SALINE AT 75 ML/HR, ZOSYN 3.375G IV TID, LEVAQUIN 750MG IV Q48H, XOPENEX NEB [place] TID, THE POTASSIUM AND MAGNESIUM PROTOCOLS, HUMULIN R SLIDING SCALE, AND HER HOME MEDICATIONS WERE RESUMED. SHE RECEIVED TWO UNITS OF PRBC YESTERDAY. WE WILL CONTINUE WITH CURRENT PLAN OF CARE TODAY. OTHERWISE, WE PLAN TO FOLLOW UP WITH AM LABS AND CHEST XRAY AND CONTINUE TO MONITOR. TIMES SPENT ON CLINICAL ASSESSMENT, REVIEWING LABS AND IMAGING, DECISION MAKING, AND DOCUMENTATION GREATER THAN 75 MINUTES. - Past Medical Family Social History Past Med/Fam/Surg Hx: No changes since H&P Allergies: Allergies codeine Allergy (Verified 08/06/20 11:37) Sulfa (Sulfonamide Antibiotics) [SULFA] Allergy (Verified 08/06/20 11:37) - Review of Systems ROS: No change since H&P - Vital Signs and I&O's Vital Signs: Temperature 97.7 F Pulse Rate [Left Radial] 81 Pulse Rate [Left Brachial] 72 Pulse Rate 79 Respiratory Rate 20 Blood Pressure [Left Arm] 155/69 Blood Pressure [Right Arm] 138/91 Blood Pressure 130/57 O2 Sat by Pulse Oximetry 94 Intake and Output: Intake & Output 08/07/20 08/08/20 08/09/20 08/10/20 11:59 11:59 11:59 11:59 Intake Total 960 / 960 2630 / 2630 3852 / 3852 2702 / 2702 Output Total 685 / 685 1700 / 1700 1750 / 1750 Balance 960 / 960 1945 / 1945 2152 / 2152 952 / 952 - Physical Exam Oriented: Normal Eyes: Normal Ear: Normal Nose: Normal Throat: Normal Respiratory: Generalized, Diminished Cardiovascular: Normal : Normal Auscultation: Bowel Sounds: Normal Palpation: Normal Tenderness: Normal Skin: Normal Musculoskeletal: Normal Psychiatric: Anxiety Mood Description: Anxious Affect: Anxious Speech Pattern: Clear, Appropriate - Laboratory and Diagnostics Result Diagrams: 08/10/20 06:14 08/10/20 06:14 Labs: 08/09/20 00:01 Urine,Clean Catch Urine Culture - Preliminary 08/06/20 22:41 Blood Blood Culture - Final Klebsiella Pneumoniae 08/06/20 22:32 Blood Blood Culture - Final Klebsiella Pneumoniae 08/06/20 13:16 Blood Blood Culture - Final Klebsiella Pneumoniae 08/06/20 12:35 Blood Blood Culture - Final Klebsiella Pneumoniae Laboratory WBC 6.3 X10^3/uL (3.6-10.0) 08/10/20 06:14 RBC 2.60 X10^6/uL (3.5-5.4) L 08/10/20 06:14 Hgb 8.4 g/dL (12.0-16.0) L 08/10/20 06:14 Hct 25.1 % (36.0-47.0) L 08/10/20 06:14 MCV 96.4 fL (80.0-100.0) 08/10/20 06:14 MCH 32.2 pg (27.0-34.0) 08/10/20 06:14 MCHC 33.4 g/dL (33.0-35.0) 08/10/20 06:14 RDW 17.8 % (11.6-16.5) H 08/10/20 06:14 Plt Count 117 X10^3/uL (150.0-450.0) L 08/10/20 06:14 Plt Count Comment Adequate (ADEQUATE) 08/10/20 06:14 MPV 9.4 fL (7.4-11.0) 08/10/20 06:14 Neut % (Auto) 89.0 % (42.0-75.0) H 08/10/20 06:14 Lymph % (Auto) 2.5 % (21.0-51.0) L 08/10/20 06:14 [place] % (Auto) 3.7 % (0.0-13.0) 08/10/20 06:14 Eos % (Auto) 4.6 % (0.9-2.9) H 08/10/20 06:14 Baso % (Auto) 0.2 % (0.2-1.0) 08/10/20 06:14 Neut # (Auto) 5.6 x10^3/uL (2.2-4.8) H 08/10/20 06:14 Lymph # (Auto) 0.2 X10^3/uL (1.3-2.9) L 08/10/20 06:14 [place] # (Auto) 0.2 x10^3/uL (0.3-0.8) L 08/10/20 06:14 Eos # (Auto) 0.3 x10^3/uL (0.0-0.2) H 08/10/20 06:14 Baso # (Auto) 0.0 X10^3/uL (0.0-0.1) 08/10/20 06:14 Absolute Nucleated RBC 0.0 /100WBC 08/10/20 06:14 Total Counted 100 08/10/20 06:14 Neutrophils % (Manual) 67 % (39-76) 08/10/20 06:14 Band Neutrophils % 10 % (0-10) 08/10/20 06:14 Lymphocytes % (Manual) 6 % (13-43) L 08/10/20 06:14 Monocytes % (Manual) 10 % (4-9) H 08/10/20 06:14 Eosinophils % (Manual) 1 % (0-6) 08/10/20 06:14 Basophils % (Manual) Cancelled 08/06/20 12:35 Metamyelocytes % 4 08/10/20 06:14 Myelocytes % 2 08/10/20 06:14 Promyelocytes % Cancelled 08/06/20 12:35 Nucleated RBCs Cancelled 08/06/20 12:35 Atypical Lymphocytes Cancelled 08/06/20 12:35 Blast Cells Cancelled 08/06/20 12:35 Smudge Cells Cancelled 08/06/20 12:35 Toxic Granulation Cancelled 08/06/20 12:35 Dohle Bodies Cancelled 08/06/20 12:35 [place] Rods Cancelled 08/06/20 12:35 Plt Clumps, EDTA Cancelled 08/06/20 12:35 Giant Platelets Cancelled 08/06/20 12:35 Plt Morphology Comment Normal (NORMAL) 08/10/20 06:14 RBC Morphology Normal (NORMAL) 08/10/20 06:14 Dimorphic RBCs Cancelled 08/06/20 12:35 Polychromasia Cancelled 08/06/20 12:35 Hypochromasia Cancelled 08/06/20 12:35 Poikilocytosis Cancelled 08/06/20 12:35 Basophilic Stippling Cancelled 08/06/20 12:35 Anisocytosis Cancelled 08/06/20 12:35 Microcytosis Cancelled 08/06/20 12:35 Macrocytosis Slight A 08/08/20 06:15 Spherocytes Cancelled 08/06/20 12:35 Pappenheimer Bodies Cancelled 08/06/20 12:35 Sickle Cells Cancelled 08/06/20 12:35 Target Cells Cancelled 08/06/20 12:35 Tear Drop Cells Cancelled 08/06/20 12:35 Ovalocytes Cancelled 08/06/20 12:35 Stomatocytes Cancelled 08/06/20 12:35 Helmet Cells Cancelled 08/06/20 12:35 [place] Bodies Cancelled 08/06/20 12:35 [place] Rings Cancelled 08/06/20 12:35 [place] Cells Cancelled 08/06/20 12:35 Crenated Cell Cancelled 08/06/20 12:35 Acanthocytes (Spur) Cancelled 08/06/20 12:35 Rouleaux Cancelled 08/06/20 12:35 Schistocytes Cancelled 08/06/20 12:35 PT 15.1 SECONDS (11.8-14.3) 08/06/20 18:49 INR Target Range - 08/06/20 18:49 INR 1.22 (0.8-1.3) 08/06/20 18:49 APTT 30.1 SECONDS (22.9-36.5) 08/06/20 18:49 PTT Comment - 08/06/20 18:49 D-Dimer 1.05 ug/ml (0.0-0.57) H* 08/06/20 18:49 Sodium 135 mmol/L (136-145) L 08/10/20 06:14 Corrected Sodium 137 mmol/L (136-145) 08/10/20 06:14 Potassium 4.0 mmol/L (3.5-5.1) 08/10/20 06:14 Chloride 105 mmol/L (98-107) 08/10/20 06:14 Carbon Dioxide 18.3 mmol/L (21-32) L 08/10/20 06:14 BUN 44 mg/dL (7-18) H 08/10/20 06:14 Creatinine 1.76 mg/dL (0.55-1.02) H 08/10/20 06:14 Est GFR (MDRD) Af Amer 37 (>60) L 08/10/20 06:14 Est GFR (MDRD) Non-Af 30 (>60) L 08/10/20 06:14 Glucose 165 mg/dL (65-99) H 08/10/20 06:14 POC Glucose (mg/dL) 138 mg/dL (65-99) H 08/10/20 05:38 Calcium 9.2 mg/dL (8.5-10.1) 08/10/20 06:14 Corrected Calcium 10.7 mg/dL (8.5-10.1) H 08/10/20 06:14 Magnesium 2.3 mg/dL (1.7-2.9) 08/10/20 06:14 Total Bilirubin 0.60 mg/dL (0.2-1.0) 08/10/20 06:14 AST 17 Units/L (15-37) 08/10/20 06:14 ALT 21 Units/L (12-78) 08/10/20 06:14 Alkaline Phosphatase 74 Units/L (46-116) 08/10/20 06:14 Creatine Kinase 56 Units/L (26-192) 08/07/20 20:26 CK-MB (CK-2) 1.4 ng/mL (0-4.0) 08/07/20 20:26 CK/CKMB % Calc 2.5 % (<4) 08/07/20 20:26 Troponin I < 0.02 ng/mL (0-1.5) 08/07/20 20:26 B-Natriuretic Peptide 513 pg/mL (0-79) H* 08/10/20 06:14 Total Protein 5.5 g/dL (6.4-8.2) L 08/10/20 06:14 Albumin 2.1 g/dL (3.4-5.0) L 08/10/20 06:14 Globulin 3.4 g/dL (2.5-4.5) 08/10/20 06:14 Albumin/Globulin Ratio 0.6 Ratio (1.1-2.1) L 08/10/20 06:14 Specimen Type Clean catch urine 08/09/20 00:01 Urine Color Yellow (YELLOW) 08/09/20 00:01 Urine Appearance Hazy (CLEAR) 08/09/20 00:01 Urine pH 5.0 (5.0 - 8.0) 08/09/20 00:01 Ur Specific [place] 1.015 (1.000-1.030) 08/09/20 00:01 Urine Protein 2+ (NEGATIVE) 08/09/20 00:01 Urine Glucose (UA) Negative (NEGATIVE) 08/09/20 00:01 Urine Ketones Negative (NEGATIVE) 08/09/20 00:01 Urine Occult Blood 1+ (NEGATIVE) 08/09/20 00:01 Urine Nitrite Negative (NEGATIVE) 08/09/20 00:01 Urine Bilirubin Negative (NEGATIVE) 08/09/20 00:01 Urine Urobilinogen Normal (NORMAL) 08/09/20 00:01 Ur Leukocyte Esterase Negative (NEGATIVE) 08/09/20 00:01 Urine RBC None seen /HPF (0-3) 08/09/20 00:01 Urine WBC 3-5 /HPF (0-5) 08/09/20 00:01 Ur Squamous Epith Cells Few /HPF (NEGATIVE) 08/09/20 00:01 Urine Bacteria 2+ /HPF (NEGATIVE) 08/09/20 00:01 Ur Culture Indicated? Yes/culture set up 08/09/20 00:01 Stool Description Fob tube 08/07/20 19:05 Stl Occult Blood (IFOB) Negative (NEGATIVE) 08/07/20 19:05 SARS-CoV-2 (PCR) Negative (NEGATIVE) 08/06/20 12:20 Influenza Type A Ag Cancelled 08/06/20 12:20 Influenza Type A (PCR) Negative (NEGATIVE) 08/06/20 12:20 Influenza Type B Ag Cancelled 08/06/20 12:20 Influenza Type B (PCR) Negative (NEGATIVE) 08/06/20 12:20 RSV (PCR) Negative (NEGATIVE) 08/06/20 12:20 Blood Type O POSITIVE 08/09/20 07:10 Antibody Screen Negative 08/09/20 07:10 Crossmatch See Detail 08/09/20 07:10 - Plan (1) Bacteremia Status: Acute Plan: FORTAZ IV, LEVAQUIN IV, IV FLUIDS, CONTINUE TO MONITOR (2) Pneumonia Status: Acute Qualifiers: Pneumonia type: due to unspecified organism Laterality: right Lung location: middle lobe of lung Qualified Code(s): J18.9 - Pneumonia, unspecified organism Plan: FORTAZ, LEVAQUIN, NEB [place], CONTINUE TO MONITOR (3) Acute on chronic renal failure Status: Acute Qualifiers: Acute renal failure type: unspecified Chronic kidney disease stage: unspecified stage Qualified Code(s): N17.9 - Acute kidney failure, unspecified; N18.9 - Chronic kidney disease, unspecified (4) Hypomagnesemia Status: Acute (5) Hypokalemia Status: Acute (6) Renal transplant recipient Status: Chronic (7) Sarcoidosis of lung Status: Chronic (8) Hyperlipidemia Status: Chronic Qualifiers: Hyperlipidemia type: mixed hyperlipidemia Qualified Code(s): E78.2 - Mixed hyperlipidemia (9) Hypertension Status: Chronic Qualifiers: Hypertension type: essential hypertension (10) Hypothyroidism Status: Chronic Qualifiers: Hypothyroidism type: acquired
[2020-08-10] MEDS: HumuLIN R SC PRN ×2 (17:27→20:19)
[2020-08-10] MEDS: XANAX PO PRN (20:19)
[2020-08-11] MEDS: TACROLIMUS 1 MG PO SCH (05:24)
[2020-08-11] MEDS: XOPENEX 1.25 MG/3 ML NEBULE NEB SCH ×3 (05:25→21:00)
[2020-08-11] MEDS: NS 1000 ML 1,000 ML IV SCH ×2 (05:45→16:49)
--- NOTE | 2020-08-11 06:32 | RAD ---
HISTORYSOBSTUDYCHEST, 1 [id number]/2021.TECHNIQUEAP view of the chestFINDINGSCardiac and mediastinal contours are within normal limits. No significant change in mild bibasilar interstitial opacities. No definite pleural effusion or pneumothorax. Soft tissue attenuation limits evaluation.IMPRESSIONNo significant change.Electronically signed by: Mau Knott (Aug 11, 2020 06:29:56)
[2020-08-11 06:42] LABS: BASOPHILS % (AUTO) 0.1 % (0.2-1.0); EOSINOPHILS # (AUTO) 0.1 x10^3/uL (0.0-0.2); EOSINOPHILS % (AUTO) 1.9 % (0.9-2.9); HEMATOCRIT 25.5 % (36.0-47.0); HEMOGLOBIN 8.3 g/dL (12.0-16.0); LYMPHOCYTES # (AUTO) 0.2 X10^3/uL (1.3-2.9); LYMPHOCYTES % (AUTO) 4.1 % (21.0-51.0); MEAN CORPUSCULAR HEMOGLOBIN 31.9 pg (27.0-34.0); MEAN CORPUSCULAR HGB CONC 32.7 g/dL (33.0-35.0); MEAN CORPUSCULAR VOLUME 97.6 fL (80.0-100.0); MEAN PLATELET VOLUME 8.8 fL (7.4-11.0); MONOCYTES # (AUTO) 0.3 x10^3/uL (0.3-0.8); MONOCYTES % (AUTO) 5.9 % (0.0-13.0); NEUTROPHILS # (AUTO) 3.8 x10^3/uL (2.2-4.8); PLATELET COUNT 143 X10^3/uL (150.0-450.0); RED BLOOD COUNT 2.62 X10^6/uL (3.5-5.4); RED CELL DISTRIBUTION WIDTH 18.5 % (11.6-16.5); WHITE BLOOD COUNT 4.4 X10^3/uL (3.6-10.0)
[2020-08-11 06:45] LABS: ALBUMIN 2.3 g/dL (3.4-5.0); CALCIUM 9.1 mg/dL (8.5-10.1); CARBON DIOXIDE 20.4 mmol/L (21-32); COR CA(FOR HYPOALB) 10.5 mg/dL (8.5-10.1); CREATININE 1.44 mg/dL (0.55-1.02); TOTAL PROTEIN 5.6 g/dL (6.4-8.2)
[2020-08-11 07:12] LABS: BAND NEUTROPHILS % 10 % (0-10)
[2020-08-11 07:13] LABS: METAMYELOCYTES % 4; MYELOCYTES % 4; PLATELET MORPHOLOGY COMMENT NORMAL (NORMAL)
[2020-08-11] MEDS ORDERED: LOMOTIL PO PRN (10:17)
[2020-08-11] MEDS: SYNTHROID 125 mcg TAB PO SCH (10:36)
[2020-08-11] MEDS: NORVASC TAB 10 MG PO SCH (10:36)
[2020-08-11] MEDS: COREG TAB 25 MG PO SCH ×2 (10:36→21:42)
[2020-08-11] MEDS: PREDNISONE TAB 5 MG PO SCH (10:38)
[2020-08-11] MEDS: MAG-OX TAB PO SCH ×2 (10:38→21:42)
[2020-08-11] MEDS: ZOLOFT PO SCH (10:39)
[2020-08-11] MEDS: LEVAQUIN PREMIX IV 750 MG 750 MG/150 ML BAG IV SCH (10:44)
[2020-08-11] MEDS: VSL#3 PO SCH (10:45)
[2020-08-11] MEDS: MYCOPHENOLATE MOFETIL 500 MG PO SCH ×2 (11:00→21:42)
--- NOTE | 2020-08-11 11:05 | PCM.PROG ---
Progress Note - Progress Note for Day of Date of Exam: 08/11/20 - Subjective Subjective: IS BEING TREATED FOR PNEUMONIA, BACTEREMIA, ACUTE ON CHRONIC RENAL FAILURE, HYPOKALEMIA, HYPOMAGNESEMIA, AND ACUTE ON CHRONIC RESPIRATORY FAILURE. SHE HAS A PMH OF SARCOIDOSIS OF LUNG, HYPERLIPIDEMIA, HYPERTENSION, HYPOTHYROIDISM, AND HAD A KIDNEY TRANSPLANT IN APRIL 2020. TODAY, SHE IS ALERT AND ORIENTED, LYING IN BED ON MORNING ROUNDS. SHE CONTINUES WITH GENERALIZED WEAKNESS TODAY, BUT REPORTS SLIGHT IMPROVEMENT IN SYMPTOMS SINCE YESTERDAY. SHE DOES ADMIT TO SEVERAL EPISODES OF DIARRHEA. ON EXAMINATION, HEART IS REGULAR IN RATE AND RHYTHM. BILATERAL LUNGS ARE NOTED WITH DIMINISHED LUNG SOUNDS THROUGHOUT. ABDOMEN IS ROUND, SOFT, AND NON-TENDER WITH NORMAL BOWEL SOUNDS NOTED IN ALL QUADRANTS. HER VITALS THIS MORNING ARE: 98.1-83-20-98%-160/69. LABS WERE OBTAINED. ABNORMAL LAB VALUES INCLUDE THE FOLLOWING: RBC 2.62, HGB 8.3, HCT 25.5, PLT COUNT 143, CARBON DIOXIDE 20.4, BUN 31, CREATININE 1.44, GLUCOSE 138, TOTAL PROTEIN 5.6, ALBUMIN 2.3. URINE CULTURE IS PENDING. BLOOD CULTURES ARE POSITIVE FOR KLEBSIELLA PNEUMONIAE. A CHEST XRAY WAS OBTAINED THIS MORNING AND REVEALED: Cardiac and mediastinal contours are within normal limits. No significant change in mild bibasilar interstitial opacities. No definite pleural effusion or pneumothorax. Soft tissue attenuation limits evaluation. SHE IS CURRENTLY RECEIVING NORMAL SALINE AT 75 ML/HR, ZOSYN 3.375G IV TID, LEVAQUIN 750MG IV Q48H, XOPENEX NEB [place] TID, THE POTASSIUM AND MAGNESIUM PROTOCOLS, HUMULIN R SLIDING SCALE, AND HER HOME MEDICATIONS WERE RESUMED. SHE RECEIVED TWO UNITS OF PRBC SUNDAY. WE WILL CONTINUE WITH CURRENT PLAN OF CARE TODAY. WE WILL REPEAT HER BLOOD CULTURES, START PROBIOTICS DAILY, AND LOMOTIL 1 TABLET PO BID PRN. WE WILL OBTAIN STOOL CULTURES. OTHERWISE, WE PLAN TO FOLLOW UP WITH AM LABS AND CHEST XRAY AND CONTINUE TO MONITOR. TIMES SPENT ON CLINICAL ASSESSMENT, REVIEWING LABS AND IMAGING, DECISION MAKING, AND DOCUMENTATION GREATER THAN 75 MINUTES. - Past Medical Family Social History Past Med/Fam/Surg Hx: No changes since H&P Allergies: Allergies codeine Allergy (Verified 08/06/20 11:37) Sulfa (Sulfonamide Antibiotics) [SULFA] Allergy (Verified 08/06/20 11:37) - Review of Systems ROS: No change since H&P - Vital Signs and I&O's Vital Signs: Temperature 98.1 F Pulse Rate [Left Radial] 83 Pulse Rate [Left Brachial] 72 Pulse Rate 72 Respiratory Rate 20 Blood Pressure [Left Arm] 160/69 Blood Pressure [Right Arm] 138/91 Blood Pressure 130/57 O2 Sat by Pulse Oximetry 98 Intake and Output: Intake & Output 08/08/20 08/09/20 08/10/20 08/11/20 11:59 11:59 11:59 11:59 Intake Total 2630 / 2630 3852 / 3852 2702 / 2702 3109 / 3109 Output Total 685 / 685 1700 / 1700 1750 / 1750 850 / 850 Balance 1945 / 1945 2152 / 2152 952 / 952 2259 / 2259 - Physical Exam Oriented: Normal Eyes: Normal Ear: Normal Nose: Normal Throat: Normal Respiratory: Generalized, Diminished Cardiovascular: Normal : Normal Auscultation: Bowel Sounds: Normal Tenderness: Normal Skin: Normal Musculoskeletal: Normal Psychiatric: Anxiety Mood Description: Anxious Affect: Anxious Speech Pattern: Clear, Appropriate - Laboratory and Diagnostics Result Diagrams: 08/11/20 05:54 08/11/20 05:54 Labs: 08/09/20 00:01 Urine,Clean Catch Urine Culture - Final 08/06/20 22:41 Blood Blood Culture - Final Klebsiella Pneumoniae 08/06/20 22:32 Blood Blood Culture - Final Klebsiella Pneumoniae 08/06/20 13:16 Blood Blood Culture - Final Klebsiella Pneumoniae 08/06/20 12:35 Blood Blood Culture - Final Klebsiella Pneumoniae Laboratory WBC 4.4 X10^3/uL (3.6-10.0) 08/11/20 05:54 RBC 2.62 X10^6/uL (3.5-5.4) L 08/11/20 05:54 Hgb 8.3 g/dL (12.0-16.0) L 08/11/20 05:54 Hct 25.5 % (36.0-47.0) L 08/11/20 05:54 MCV 97.6 fL (80.0-100.0) 08/11/20 05:54 MCH 31.9 pg (27.0-34.0) 08/11/20 05:54 MCHC 32.7 g/dL (33.0-35.0) L 08/11/20 05:54 RDW 18.5 % (11.6-16.5) H 08/11/20 05:54 Plt Count 143 X10^3/uL (150.0-450.0) L 08/11/20 05:54 Plt Count Comment Decreased (ADEQUATE) A 08/11/20 05:54 MPV 8.8 fL (7.4-11.0) 08/11/20 05:54 Neut % (Auto) 88.0 % (42.0-75.0) H 08/11/20 05:54 Lymph % (Auto) 4.1 % (21.0-51.0) L 08/11/20 05:54 [place] % (Auto) 5.9 % (0.0-13.0) 08/11/20 05:54 Eos % (Auto) 1.9 % (0.9-2.9) 08/11/20 05:54 Baso % (Auto) 0.1 % (0.2-1.0) L 08/11/20 05:54 Neut # (Auto) 3.8 x10^3/uL (2.2-4.8) 08/11/20 05:54 Lymph # (Auto) 0.2 X10^3/uL (1.3-2.9) L 08/11/20 05:54 [place] # (Auto) 0.3 x10^3/uL (0.3-0.8) 08/11/20 05:54 Eos # (Auto) 0.1 x10^3/uL (0.0-0.2) 08/11/20 05:54 Baso # (Auto) 0.0 X10^3/uL (0.0-0.1) 08/11/20 05:54 Absolute Nucleated RBC 0.0 /100WBC 08/11/20 05:54 Total Counted 100 08/11/20 05:54 Neutrophils % (Manual) 64 % (39-76) 08/11/20 05:54 Band Neutrophils % 10 % (0-10) 08/11/20 05:54 Lymphocytes % (Manual) 4 % (13-43) L 08/11/20 05:54 Monocytes % (Manual) 13 % (4-9) H 08/11/20 05:54 Eosinophils % (Manual) 1 % (0-6) 08/11/20 05:54 Basophils % (Manual) Cancelled 08/06/20 12:35 Metamyelocytes % 4 08/11/20 05:54 Myelocytes % 4 08/11/20 05:54 Promyelocytes % Cancelled 08/06/20 12:35 Nucleated RBCs Cancelled 08/06/20 12:35 Atypical Lymphocytes Cancelled 08/06/20 12:35 Blast Cells Cancelled 08/06/20 12:35 Smudge Cells Cancelled 08/06/20 12:35 Toxic Granulation Cancelled 08/06/20 12:35 Dohle Bodies Cancelled 08/06/20 12:35 [place] Rods Cancelled 08/06/20 12:35 Plt Clumps, EDTA Cancelled 08/06/20 12:35 Giant Platelets Cancelled 08/06/20 12:35 Plt Morphology Comment Normal (NORMAL) 08/11/20 05:54 RBC Morphology Normal (NORMAL) 08/11/20 05:54 Dimorphic RBCs Cancelled 08/06/20 12:35 Polychromasia Cancelled 08/06/20 12:35 Hypochromasia Cancelled 08/06/20 12:35 Poikilocytosis Cancelled 08/06/20 12:35 Basophilic Stippling Cancelled 08/06/20 12:35 Anisocytosis Cancelled 08/06/20 12:35 Microcytosis Cancelled 08/06/20 12:35 Macrocytosis Slight A 08/08/20 06:15 Spherocytes Cancelled 08/06/20 12:35 Pappenheimer Bodies Cancelled 08/06/20 12:35 Sickle Cells Cancelled 08/06/20 12:35 Target Cells Cancelled 08/06/20 12:35 Tear Drop Cells Cancelled 08/06/20 12:35 Ovalocytes Cancelled 08/06/20 12:35 Stomatocytes Cancelled 08/06/20 12:35 Helmet Cells Cancelled 08/06/20 12:35 [place] Bodies Cancelled 08/06/20 12:35 [place] Rings Cancelled 08/06/20 12:35 [place] Cells Cancelled 08/06/20 12:35 Crenated Cell Cancelled 08/06/20 12:35 Acanthocytes (Spur) Cancelled 08/06/20 12:35 Rouleaux Cancelled 08/06/20 12:35 Schistocytes Cancelled 08/06/20 12:35 PT 15.1 SECONDS (11.8-14.3) 08/06/20 18:49 INR Target Range - 08/06/20 18:49 INR 1.22 (0.8-1.3) 08/06/20 18:49 APTT 30.1 SECONDS (22.9-36.5) 08/06/20 18:49 PTT Comment - 08/06/20 18:49 D-Dimer 1.05 ug/ml (0.0-0.57) H* 08/06/20 18:49 Sodium 137 mmol/L (136-145) 08/11/20 05:54 Corrected Sodium 138 mmol/L (136-145) 08/11/20 05:54 Potassium 4.3 mmol/L (3.5-5.1) 08/11/20 05:54 Chloride 107 mmol/L (98-107) 08/11/20 05:54 Carbon Dioxide 20.4 mmol/L (21-32) L 08/11/20 05:54 BUN 31 mg/dL (7-18) H 08/11/20 05:54 Creatinine 1.44 mg/dL (0.55-1.02) H 08/11/20 05:54 Est GFR (MDRD) Af Amer 46 (>60) L 08/11/20 05:54 Est GFR (MDRD) Non-Af 38 (>60) L 08/11/20 05:54 Glucose 138 mg/dL (65-99) H 08/11/20 05:54 POC Glucose (mg/dL) 134 mg/dL (65-99) H 08/11/20 11:00 Calcium 9.1 mg/dL (8.5-10.1) 08/11/20 05:54 Corrected Calcium 10.5 mg/dL (8.5-10.1) H 08/11/20 05:54 Magnesium 2.3 mg/dL (1.7-2.9) 08/10/20 06:14 Total Bilirubin 0.60 mg/dL (0.2-1.0) 08/11/20 05:54 AST 15 Units/L (15-37) 08/11/20 05:54 ALT 17 Units/L (12-78) 08/11/20 05:54 Alkaline Phosphatase 72 Units/L (46-116) 08/11/20 05:54 Creatine Kinase 56 Units/L (26-192) 08/07/20 20:26 CK-MB (CK-2) 1.4 ng/mL (0-4.0) 08/07/20 20:26 CK/CKMB % Calc 2.5 % (<4) 08/07/20 20:26 Troponin I < 0.02 ng/mL (0-1.5) 08/07/20 20:26 B-Natriuretic Peptide 513 pg/mL (0-79) H* 08/10/20 06:14 Total Protein 5.6 g/dL (6.4-8.2) L 08/11/20 05:54 Albumin 2.3 g/dL (3.4-5.0) L 08/11/20 05:54 Globulin 3.3 g/dL (2.5-4.5) 08/11/20 05:54 Albumin/Globulin Ratio 0.7 Ratio (1.1-2.1) L 08/11/20 05:54 Specimen Type Clean catch urine 08/09/20 00:01 Urine Color Yellow (YELLOW) 08/09/20 00:01 Urine Appearance Hazy (CLEAR) 08/09/20 00:01 Urine pH 5.0 (5.0 - 8.0) 08/09/20 00:01 Ur Specific [place] 1.015 (1.000-1.030) 08/09/20 00:01 Urine Protein 2+ (NEGATIVE) 08/09/20 00:01 Urine Glucose (UA) Negative (NEGATIVE) 08/09/20 00:01 Urine Ketones Negative (NEGATIVE) 08/09/20 00:01 Urine Occult Blood 1+ (NEGATIVE) 08/09/20 00:01 Urine Nitrite Negative (NEGATIVE) 08/09/20 00:01 Urine Bilirubin Negative (NEGATIVE) 08/09/20 00:01 Urine Urobilinogen Normal (NORMAL) 08/09/20 00:01 Ur Leukocyte Esterase Negative (NEGATIVE) 08/09/20 00:01 Urine RBC None seen /HPF (0-3) 08/09/20 00:01 Urine WBC 3-5 /HPF (0-5) 08/09/20 00:01 Ur Squamous Epith Cells Few /HPF (NEGATIVE) 08/09/20 00:01 Urine Bacteria 2+ /HPF (NEGATIVE) 08/09/20 00:01 Ur Culture Indicated? Yes/culture set up 08/09/20 00:01 Stool Description Fob tube 08/07/20 19:05 Stl Occult Blood (IFOB) Negative (NEGATIVE) 08/07/20 19:05 SARS-CoV-2 (PCR) Negative (NEGATIVE) 08/06/20 12:20 Influenza Type A Ag Cancelled 08/06/20 12:20 Influenza Type A (PCR) Negative (NEGATIVE) 08/06/20 12:20 Influenza Type B Ag Cancelled 08/06/20 12:20 Influenza Type B (PCR) Negative (NEGATIVE) 08/06/20 12:20 RSV (PCR) Negative (NEGATIVE) 08/06/20 12:20 Blood Type O POSITIVE 08/09/20 07:10 Antibody Screen Negative 08/09/20 07:10 Crossmatch See Detail 08/09/20 07:10 - Plan (1) Bacteremia Status: Acute Plan: FORTAZ IV, LEVAQUIN IV, IV FLUIDS, CONTINUE TO MONITOR (2) Pneumonia Status: Acute Qualifiers: Pneumonia type: due to unspecified organism Laterality: right Lung location: middle lobe of lung Qualified Code(s): J18.9 - Pneumonia, unspecified organism Plan: FORTAZ, LEVAQUIN, NEB TX, CONTINUE TO MONITOR (3) Acute on chronic renal failure Status: Acute Qualifiers: Acute renal failure type: unspecified Chronic kidney disease stage: unspecified stage Qualified Code(s): N17.9 - Acute kidney failure, unspecified; N18.9 - Chronic kidney disease, unspecified (4) Hypomagnesemia Status: Acute (5) Hypokalemia Status: Acute (6) Renal transplant recipient Status: Chronic (7) Sarcoidosis of lung Status: Chronic (8) Hyperlipidemia Status: Chronic Qualifiers: Hyperlipidemia type: mixed hyperlipidemia Qualified Code(s): E78.2 - Mixed hyperlipidemia (9) Hypertension Status: Chronic Qualifiers: Hypertension type: essential hypertension (10) Hypothyroidism Status: Chronic Qualifiers: Hypothyroidism type: acquired
[2020-08-11] MEDS: ZOSYN VIAL 3.375 GRAMS 3.375 G in NS 100 ML IV + SPIKE MINIBAG* 100 ML IV SCH ×2 (12:29→21:40)
[2020-08-11] MEDS ORDERED: ROBITUSSIN DM PO PRN ×2 (15:06→15:08)
[2020-08-11] MEDS: HumuLIN R SC PRN ×2 (16:49→21:41)
[2020-08-12] MEDS: TACROLIMUS 1 MG PO SCH (05:06)
[2020-08-12 06:02] LABS: BASOPHILS % (AUTO) 0.1 % (0.2-1.0); EOSINOPHILS # (AUTO) 0.1 x10^3/uL (0.0-0.2); EOSINOPHILS % (AUTO) 1.8 % (0.9-2.9); HEMATOCRIT 23.9 % (36.0-47.0); HEMOGLOBIN 7.9 g/dL (12.0-16.0); LYMPHOCYTES # (AUTO) 0.2 X10^3/uL (1.3-2.9); LYMPHOCYTES % (AUTO) 4.8 % (21.0-51.0); MEAN CORPUSCULAR HEMOGLOBIN 31.9 pg (27.0-34.0); MEAN CORPUSCULAR HGB CONC 32.9 g/dL (33.0-35.0); MEAN CORPUSCULAR VOLUME 97.1 fL (80.0-100.0); MEAN PLATELET VOLUME 8.6 fL (7.4-11.0); MONOCYTES # (AUTO) 0.1 x10^3/uL (0.3-0.8); MONOCYTES % (AUTO) 3.6 % (0.0-13.0); NEUTROPHILS # (AUTO) 3.1 x10^3/uL (2.2-4.8); NEUTROPHILS % (AUTO) 89.7 % (42.0-75.0); PLATELET COUNT 159 X10^3/uL (150.0-450.0); RED BLOOD COUNT 2.46 X10^6/uL (3.5-5.4); RED CELL DISTRIBUTION WIDTH 17.7 % (11.6-16.5); WHITE BLOOD COUNT 3.5 X10^3/uL (3.6-10.0)
--- NOTE | 2020-08-12 06:11 | RAD ---
STUDY: CHEST, 1 VIEWCOMPARISON: 08/11/2020HISTORY: SOBFINDINGS:The cardiomediastinal contour is stable. There is slight increased pulmonary edema when compared to the prior exam. No consolidation, pleural effusion, or pneumothorax is seen. The trachea is midline.IMPRESSION:Findings suggest slight worsening pulmonary edema when compared to the prior examination.Electronically signed by: Nba Malik (Aug 12, 2020 06:09:00)
[2020-08-12] MEDS: XOPENEX 1.25 MG/3 ML NEBULE NEB SCH (06:15)
[2020-08-12 06:33] LABS: ALBUMIN 2.2 g/dL (3.4-5.0); CARBON DIOXIDE 22.4 mmol/L (21-32); COR CA(FOR HYPOALB) 10.4 mg/dL (8.5-10.1); CREATININE 1.23 mg/dL (0.55-1.02); TOTAL PROTEIN 5.5 g/dL (6.4-8.2)
[2020-08-12] MEDS: NS 1000 ML 1,000 ML IV SCH (06:38)
[2020-08-12 06:44] LABS: BAND NEUTROPHILS % 6 % (0-10); METAMYELOCYTES % 4; MYELOCYTES % 2
[2020-08-12 06:45] LABS: PLATELET MORPHOLOGY COMMENT NORMAL (NORMAL)
[2020-08-12] MEDS: ZOSYN VIAL 3.375 GRAMS 3.375 G in NS 100 ML IV + SPIKE MINIBAG* 100 ML IV SCH (08:40)
[2020-08-12] MEDS: PREDNISONE TAB 5 MG PO SCH (08:41)
[2020-08-12] MEDS: VSL#3 PO SCH (08:42)
[2020-08-12] MEDS: NORVASC TAB 10 MG PO SCH (08:42)
[2020-08-12] MEDS: SYNTHROID 125 mcg TAB PO SCH (08:42)
[2020-08-12] MEDS: COREG TAB 25 MG PO SCH (08:42)
[2020-08-12] MEDS: MAG-OX TAB PO SCH (08:43)
[2020-08-12] MEDS: MYCOPHENOLATE MOFETIL 500 MG PO SCH (08:43)
[2020-08-12] MEDS: ZOLOFT PO SCH (08:43)
[2020-08-12] MEDS ORDERED: LASIX IVP ONE (09:43)
[2020-08-12] MEDS: HumuLIN R SC PRN (11:20)
[2020-08-12 12:02] VITALS: BP 157/70
== END 2020-08-12 13:45 | disposition home or self-care (01) | DRG 871 ==
LOC: ER 11:33 → MED/SURG 15:15
PROVIDERS: ADMIT Internal Medicine; ATTEND Internal Medicine
DX: E83.42 Hypomagnesemia; R78.81 Bacteremia; B96.1 Klebsiella pneumoniae [K. pneumoniae] as the cause of diseases classified elsewhere; R06.02 Shortness of breath; Z94.0 Kidney transplant status; J18.8 Other pneumonia, unspecified organism; N17.8 Other acute kidney failure; N18.9 Chronic kidney disease, unspecified; E03.8 Other specified hypothyroidism; E78.5 Hyperlipidemia, unspecified; J96.21 Acute and chronic respiratory failure with hypoxia; E87.6 Hypokalemia; Z20.822 Contact with and (suspected) exposure to COVID-19; D86.0 Sarcoidosis of lung; I12.9 Hypertensive chronic kidney disease with stage 1 through stage 4 chronic kidney disease, or unspecified chronic kidney disease; R94.31 Abnormal electrocardiogram [ECG] [EKG]

== ENCOUNTER 2021-09-12 11:19 | Observation (INO) ==
[2021-09-12] MEDS ORDERED: NovoLIN R (or HumuLIN R) SUBCUT PRN (16:33)
[2021-09-12 17:10] VITALS: BMI 28.6
[2021-09-12] MEDS: NS 1,000 ML IV 1,000 ML IV SCH (17:53)
[2021-09-12] MEDS: INVanz INJ 1 GRAM VIAL 0.5 G in NS 50 ML IV 50 ML IV SCH ×2 (17:53→21:00)
[2021-09-12 18:12] LABS: BASOPHILS % (AUTO) 0.6 % (0.2-1.0); HEMATOCRIT 34.3 % (36.0-47.0); HEMOGLOBIN 11.4 g/dL (12.0-16.0); LYMPHOCYTES # (AUTO) 0.6 X10^3/uL (1.3-2.9); LYMPHOCYTES % (AUTO) 7.2 % (21.0-51.0); MEAN CORPUSCULAR HEMOGLOBIN 30.7 pg (27.0-34.0); MEAN CORPUSCULAR HGB CONC 33.2 g/dL (33.0-35.0); MEAN CORPUSCULAR VOLUME 92.4 fL (80.0-100.0); MEAN PLATELET VOLUME 8.1 fL (7.4-11.0); MONOCYTES % (AUTO) 12.1 % (0.0-13.0); NEUTROPHILS # (AUTO) 6.3 x10^3/uL (2.2-4.8); NEUTROPHILS % (AUTO) 80.1 % (42.0-75.0); RED BLOOD COUNT 3.71 X10^6/uL (3.5-5.4); RED CELL DISTRIBUTION WIDTH 13.6 % (11.6-16.5); WHITE BLOOD COUNT 7.9 X10^3/uL (3.6-10.0)
[2021-09-12 18:25] LABS: ALBUMIN 3.2 g/dL (3.4-5.0); CARBON DIOXIDE 24.5 mmol/L (21-32); COR CA(FOR HYPOALB) 9.6 mg/dL (8.5-10.1); CREATININE 2.46 mg/dL (0.55-1.02); TOTAL PROTEIN 6.5 g/dL (6.4-8.2)
[2021-09-12] MEDS: SNACK - Diabetic Appropriate PO SCH (21:01)
[2021-09-13] MEDS: NS 1,000 ML IV 1,000 ML IV SCH ×2 (05:40→20:37)
[2021-09-13 06:12] LABS: BASOPHILS % (AUTO) 0.5 % (0.2-1.0); EOSINOPHILS % (AUTO) 0.5 % (0.9-2.9); HEMATOCRIT 32.4 % (36.0-47.0); LYMPHOCYTES # (AUTO) 0.5 X10^3/uL (1.3-2.9); LYMPHOCYTES % (AUTO) 7.4 % (21.0-51.0); MEAN CORPUSCULAR HEMOGLOBIN 30.9 pg (27.0-34.0); MEAN CORPUSCULAR HGB CONC 33.9 g/dL (33.0-35.0); MEAN CORPUSCULAR VOLUME 91.4 fL (80.0-100.0); MEAN PLATELET VOLUME 8.6 fL (7.4-11.0); MONOCYTES % (AUTO) 14.5 % (0.0-13.0); NEUTROPHILS # (AUTO) 5.4 x10^3/uL (2.2-4.8); NEUTROPHILS % (AUTO) 77.1 % (42.0-75.0); RED BLOOD COUNT 3.55 X10^6/uL (3.5-5.4)
[2021-09-13 06:36] LABS: CARBON DIOXIDE 18.9 mmol/L (21-32); COR CA(FOR HYPOALB) 9.8 mg/dL (8.5-10.1); CREATININE 2.04 mg/dL (0.55-1.02); TOTAL PROTEIN 6.2 g/dL (6.4-8.2)
[2021-09-13 06:55] LABS: BILIRUBIN,URINE 1+ (NEGATIVE); BLOOD/HEMOGLOBIN,URINE 2+ (NEGATIVE); GLUCOSE, URINE NEGATIVE (NEGATIVE); KETONES,URINE 1+ (NEGATIVE); LEUKOCYTE ESTERASE ,URINE 3+ (NEGATIVE); NITRITES,URINE POSITIVE (NEGATIVE); PROTEIN,URINE 2+ (NEGATIVE); UROBILINOGEN,URINE 1+ (NORMAL)
[2021-09-13 07:00] LABS: APPEARANCE,URINE HAZY (CLEAR); BACTERIA,URINE TRACE /HPF (NEGATIVE); COLOR,URINE ORANGE (YELLOW); RENAL EPITHELIAL CELLS,URINE FEW /HPF (NEGATIVE); SQUAMOUS EPITHELIAL CELL,UR FEW /HPF (NEGATIVE)
[2021-09-13] MEDS: INVanz INJ 1 GRAM VIAL 0.5 G in NS 50 ML IV 50 ML IV SCH ×2 (08:24→20:39)
[2021-09-13] MEDS: LOVENOX INJ 30 MG SYR SC SCH (15:08)
[2021-09-13] MEDS: FLONASE NASAL SPRAY ENOSTRIL SCH (15:09)
[2021-09-13] MEDS: MYCOPHENOLATE MOFETIL 500 MG PO SCH ×2 (15:09→20:39)
[2021-09-13] MEDS: TACROLIMUS 1 MG PO SCH (15:09)
[2021-09-13] MEDS: SYNTHROID 125 mcg TAB PO SCH (16:39)
[2021-09-13] MEDS: SINGULAIR TAB 10 MG PO SCH (16:39)
[2021-09-13] MEDS: HumaLOG SC SCH (16:39)
[2021-09-13] MEDS: PREDNISONE TAB 5 MG PO SCH (16:39)
[2021-09-13] MEDS: ZOLOFT PO SCH ×2 (16:49→20:40)
[2021-09-13] MEDS: ZESTRIL TAB 10 MG PO SCH (16:49)
[2021-09-13] MEDS ORDERED: SNACK - Diabetic Appropriate PO SCH (20:00)
[2021-09-13] MEDS ORDERED: CRESTOR TAB 10 MG PO SCH (20:00)
[2021-09-13] MEDS: SNACK - Diabetic Appropriate PO SCH (20:38)
[2021-09-13] MEDS: NovoLIN N or HumuLIN N SC SCH (20:39)
[2021-09-13] MEDS: MAG-OX TAB PO SCH (20:39)
[2021-09-13] MEDS: COREG TAB 25 MG PO SCH (20:39)
--- NOTE | 2021-09-13 22:12 | DR.UPDATE ---
H&P Update History and Physical Update: History and Physical reviewed and patient examined Changes noted: Yes with the following: PATIENT WAS ADMITTED FOR TX OF PYELONEPHRITIS, DYSURIA, FEVER, N/V. SHE IS STATUS POST KIDNEY TRANSPLANT 04/2020. SHE REPORTS HAVING CHRONIC UTIs SINCE KIDNEY TRANSPLANT. SHE ADMITS TO LEFT AND RIGHT SIDE FLANK PAIN. LABS OBTAINED ON ADMISSION REVEALED THE FOLLOWING: WBC 7.9, HGB 11.4, HCT 34.3, SODIUM 134, POTASSIUM 4.4, BUN 41, CREATININE 2.46, GLUCOSE 174, AST 20, ALT 30, ALK PHOS 106, TOTAL PROTEIN 6.5, ALBUMIN 3.2. URINE AND BLOOD CULTURES WERE SET UP. SHE WAS STARTED ON INVANZ 0.5G IV DAILY AND NORMAL SALINE AT 80 ML/HR. OTHERWISE, WE PLAN TO FOLLOW UP WITH AM LABS AND CONTINUE TO MONITOR. TIME SPENT ON CLINICAL ASSESSMENT, REVIEWING LABS AND IMAGING, DECISION MAKING, AND DOCUMENTATION GREATER THAN 75 MINUTES. Prescription drug monitoring program results: PDMP reviewed and no concerns identified H&P Reviewed: Yes Patient was examined?: Yes
[2021-09-14] MEDS: HumaLOG SC SCH ×2 (01:14→05:47)
[2021-09-14 06:16] LABS: EOSINOPHILS # (AUTO) 0.1 x10^3/uL (0.0-0.2); EOSINOPHILS % (AUTO) 3.1 % (0.9-2.9); HEMATOCRIT 32.3 % (36.0-47.0); LYMPHOCYTES # (AUTO) 0.5 X10^3/uL (1.3-2.9); LYMPHOCYTES % (AUTO) 11.2 % (21.0-51.0); MEAN CORPUSCULAR HEMOGLOBIN 31.2 pg (27.0-34.0); MEAN CORPUSCULAR HGB CONC 34.1 g/dL (33.0-35.0); MEAN CORPUSCULAR VOLUME 91.7 fL (80.0-100.0); MEAN PLATELET VOLUME 8.2 fL (7.4-11.0); MONOCYTES # (AUTO) 0.7 x10^3/uL (0.3-0.8); MONOCYTES % (AUTO) 16.4 % (0.0-13.0); NEUTROPHILS # (AUTO) 2.9 x10^3/uL (2.2-4.8); NEUTROPHILS % (AUTO) 68.3 % (42.0-75.0); RED BLOOD COUNT 3.52 X10^6/uL (3.5-5.4); RED CELL DISTRIBUTION WIDTH 13.5 % (11.6-16.5); WHITE BLOOD COUNT 4.2 X10^3/uL (3.6-10.0)
[2021-09-14 06:30] LABS: ALBUMIN 2.9 g/dL (3.4-5.0); CARBON DIOXIDE 20.9 mmol/L (21-32); COR CA(FOR HYPOALB) 9.9 mg/dL (8.5-10.1); CREATININE 1.76 mg/dL (0.55-1.02); TOTAL PROTEIN 6.2 g/dL (6.4-8.2)
[2021-09-14] MEDS: LOVENOX INJ 30 MG SYR SC SCH (09:07)
[2021-09-14] MEDS: FLONASE NASAL SPRAY ENOSTRIL SCH (09:07)
[2021-09-14] MEDS: COREG TAB 25 MG PO SCH (10:15)
[2021-09-14] MEDS: NS 1,000 ML IV 1,000 ML IV SCH (10:15)
[2021-09-14] MEDS: INVanz INJ 1 GRAM VIAL 0.5 G in NS 50 ML IV 50 ML IV SCH (10:15)
[2021-09-14] MEDS: SINGULAIR TAB 10 MG PO SCH (10:16)
[2021-09-14] MEDS: MAG-OX TAB PO SCH (10:16)
[2021-09-14] MEDS: PREDNISONE TAB 5 MG PO SCH (10:16)
[2021-09-14] MEDS: NovoLIN N or HumuLIN N SC SCH (10:16)
[2021-09-14] MEDS: MYCOPHENOLATE MOFETIL 500 MG PO SCH (10:16)
[2021-09-14] MEDS: ZOLOFT PO SCH (10:17)
[2021-09-14] MEDS: SYNTHROID 125 mcg TAB PO SCH (10:17)
[2021-09-14] MEDS: TACROLIMUS 1 MG PO SCH (10:17)
[2021-09-14] MEDS: ZESTRIL TAB 10 MG PO SCH (10:17)
[2021-09-14 11:50] VITALS: BP 173/76
== END 2021-09-14 11:40 | disposition home or self-care (01) ==
LOC: MED/SURG
PROVIDERS: ADMIT Internal Medicine; ATTEND Internal Medicine
DX: R73.09 Other abnormal glucose; Z87.440 Personal history of urinary (tract) infections; N12 Tubulo-interstitial nephritis, not specified as acute or chronic; Z20.822 Contact with and (suspected) exposure to COVID-19; N39.0 Urinary tract infection, site not specified; Z94.0 Kidney transplant status